=== PATIENT | male | born 1985 | race African-American/Black ===

== ENCOUNTER 2019-08-26 02:58 | Inpatient (IN) | payer OTHER, SELFPAY ==
[2019-08-26 03:24] LABS: #Basophils 0.1 thou/uL (0.0-0.2); #Eosinphils 0.2 thou/uL (0.0-0.7); #Lymphocytes 5.2 thou/uL (1.20-3.40); #Monocytes 1.3 thou/uL (0.11-0.59); #Neutrophils 6.8 thou/uL (1.40-6.50); %Basophils 0.8 % (0.0-1.0); %Eosinophils 1.6 % (0.0-10.0); %Lymphocytes 38.3 % (21.0-51.0); %Monocytes 9.4 % (0.0-10.0); Hemoglobin 14.3 g/dL (14.0-18.0); Mean Corpuscular Hemoglobin 30.5 pg (27.0-31.0); Mean Corpuscular Volume 92.3 fL (78.0-98.0); Mean Platelet Volume 7.5 fL (7.4-10.4); Platelet Count 215 thou/uL (130-400); RBC Distribution Width 13.4 % (11.5-14.5); Red Blood Cell (RBC) Count 4.68 mill/uL (4.70-6.10); White Blood Cell (WBC) Count 13.6 thou/uL (4.8-10.8)
[2019-08-26] MEDS ORDERED: Morphine 4 MG/ML VIAL ONE ×2 (03:40→06:28)
[2019-08-26] MEDS ORDERED: Ondansetron PF 4 MG/2 ML Vial ONE ×2 (03:40→06:28)
[2019-08-26] MEDS ORDERED: CEFAZOLIN 1 GM VIAL ONE ×2 (03:40→18:18)
[2019-08-26 03:41] LABS: ALT (SGPT) 22 U/L (8-55); AST (SGOT) 35 U/L (5-34); Acetaminophen Less than 6.0 mcg/mL (10.0-30.0); Albumin 3.9 g/dL (3.5-5.0); Alcohol Less than 10 mg/dL (Less than 10); Alkaline Phosphatase 109 U/L (40-110); Anion Gap 16 mmol/L (10-20); BUN (Urea Nitrogen) 10 mg/dL (8.9-20.6); Bilirubin, Total 0.5 mg/dL (0.2-1.2); Calc. Creatinine Clearance 0 mL/min (70-130); Calcium 9.6 mg/dL (7.8-10.44); Carbon Dioxide 23 mmol/L (22-29); Chloride 108 mmol/L (98-107); Estimated GFR-MDRD 78; Globulin 2.8 g/dL (2.4-3.5); Glucose 137 mg/dL (70-105); Potassium 3.9 mmol/L (3.5-5.1); Protein, Total 6.7 g/dL (6.0-8.3); Salicylate Less than 8.0 mg/dL (15.0-30.0); Sodium 143 mmol/L (136-145)
[2019-08-26] MEDS ORDERED: Ketamine 50 MG/ML (10ML VIAL) ONE (04:35)
[2019-08-26 05:18] LABS: CK (CPK) 494 U/L (30-200); Magnesium 1.7 mg/dL (1.6-2.6); Phosphorus 3.4 mg/dL (2.3-4.7)
[2019-08-26] MEDS ORDERED: hydrALAZINE 20 MG/ML VIAL SLOW IVP PRN (05:27)
[2019-08-26] MEDS ORDERED: Dextrose 50% Abboject 50 ML SYRINGE SLOW IVP PRN (05:27)
[2019-08-26] MEDS ORDERED: Ondansetron ODT 4 MG TAB PO PRN (05:27)
[2019-08-26] MEDS ORDERED: Dextrose 5% in Water 1,000 ML IV PRN (05:27)
[2019-08-26] MEDS ORDERED: Ondansetron PF 4 MG/2 ML Vial IVP PRN (05:27)
[2019-08-26] MEDS ORDERED: traMADol HCl 50 MG TAB PO PRN (05:36)
[2019-08-26] MEDS: Acetaminophen 1,000 MG in Premix Bag 1 BAG IVPB SCH ×2 (06:00→11:49)
[2019-08-26 06:30] LABS: Amphetamine Detected (NotDetected); Barbiturates Screen Not Detected (NotDetected); Benzodiazepine Screen Not Detected (NotDetected); Cocaine Metabolite Screen Detected (NotDetected); Medtox Reader # READER 4; Methadone Not Detected (NotDetected); Methamphetamine Not Detected (NotDetected); Opiate Screen Not Detected (NotDetected); Oxycodone Screen Not Detected (NotDetected); Phencyclidine (PCP) Detected (NotDetected); THC/Cannabinoid Screen Detected (NotDetected); Tricyclic Screen Not Detected (NotDetected)
[2019-08-26 06:31] LABS: Medtox Control Line Valid? VALID (VALID)
[2019-08-26] MEDS ORDERED: CEFAZOLIN 2 GM in Premix Bag 1 BAG IVPB SCH (07:00)
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
--- NOTE | 2019-08-26 08:12 | RAD ---
TWO VIEWS RIGHT HIP: HISTORY: Pain. Trauma. FINDINGS: There appears to be a comminuted fracture involving the lateral aspect of the acetabulum. IMPRESSION: Acetabular fracture. Refer to CT for further details. POS: [facility]
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
[2019-08-26] MEDS: Sodium Chloride 0.9% 1,000 ML IV SCH ×3 (08:47→22:24)
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
[2019-08-26] MEDS: Famotidine/PF 20 mg/2ml Vial SLOW IVP SCH ×2 (09:33→22:02)
[2019-08-26] MEDS ORDERED: ISOVUE-370 76%-LOCM 1 ML ONE (09:44)
[2019-08-26] MEDS: Ibuprofen 800 MG TAB PO SCH ×2 (09:46→16:25)
[2019-08-26] MEDS: Senokot S 8.6-50 MG TAB PO SCH ×2 (09:46→22:02)
[2019-08-26] MEDS: Polyethylene Glycol 3350 17 GM Packet PO SCH (09:46)
[2019-08-26] MEDS ORDERED: diphenhydrAMINE 50 MG/ML VIAL ONE (09:49)
[2019-08-26] MEDS ORDERED: Succinylcholine Chloride 20 MG/ML 10 ml SYRINGE FS ONE (09:49)
[2019-08-26] MEDS ORDERED: PHENYLEPHRINE-NS 100 MCG/ML 10 ML SYRINGE ONE (09:49)
[2019-08-26] MEDS ORDERED: Rocuronium Bromide 10 MG/ML (10ML VIAL) ONE (09:49)
[2019-08-26] MEDS ORDERED: PROPOFOL 200 MG/20 ML VIAL ONE (09:49)
[2019-08-26] MEDS ORDERED: Dexamethasone 20 MG/5 ML VIAL ONE (09:49)
[2019-08-26] MEDS ORDERED: Lidocaine 1% PF 5 ML VIAL ONE (09:49)
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
[2019-08-26 11:20] VITALS: BMI 38.7
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
[2019-08-26] MEDS: Morphine 2 MG/ML SYRINGE SLOW IVP PRN (11:47)
[2019-08-26] MEDS ORDERED: FLU VACC QS2019-20(6MOS UP)/PF 60 MCG/0.5 ML SYRINGE IM ONE (12:00)
[2019-08-26] MEDS ORDERED: Fentanyl 100 MCG/2 ML VIAL ONE ×2 (13:35→19:28)
[2019-08-26] MEDS ORDERED: Midazolam HCl 2 mg/2 ml Vial ONE (13:51)
[2019-08-26] MEDS ORDERED: Fentanyl 250 MCG/5 ML VIAL ONE (13:51)
[2019-08-26] MEDS ORDERED: HYDROmorphone 0.5 MG/0.5 ML SYRINGE ONE (15:35)
[2019-08-26] MEDS ORDERED: Albumin 5% 500 ML ONE (17:15)
[2019-08-26] MEDS ORDERED: Rocuronium Bromide 50 MG/5 ML VIAL ONE (18:18)
[2019-08-26] MEDS ORDERED: SUGAMMADEX SODIUM 500 MG/5 ML VIAL ONE (18:18)
[2019-08-26] MEDS ORDERED: SUGAMMADEX SODIUM 200 MG/2 ML VIAL ONE (18:19)
[2019-08-26] MEDS: Acetaminophen 500 MG TAB PO SCH (19:05)
--- NOTE | 2019-08-26 19:25 | RAD ---
EXAM: 2 views of the left forearm HISTORY: Radius and ulnar fractures COMPARISON: 08/26/2019 at 3:16 AM FINDINGS: 2 limited intraoperative fluoroscopic views were submitted for interpretation. The patient is status post plate and screw fixation of the fractures of the midportion of the radius and ulna. No perihardware lucency is seen. IMPRESSION: Status post ORIF of radius and ulnar fractures.
[2019-08-26] MEDS ORDERED: Promethazine HCl 25 MG/ML VIAL IM PRN (19:56)
[2019-08-26] MEDS ORDERED: Ondansetron HCl/PF 4 MG/2 ML Vial IVP PRN (19:56)
[2019-08-26] MEDS ORDERED: Meperidine HCl/PF 25 MG/ML VIAL SLOW IVP PRN (19:56)
[2019-08-26] MEDS ORDERED: HYDROmorphone 2 MG/ML VIAL SLOW IVP PRN (19:56)
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
[2019-08-26] MEDS: CEFAZOLIN 2 GM in Premix Bag 1 BAG IVPB SCH (22:11)
[2019-08-27] MEDS: Acetaminophen 500 MG TAB PO SCH ×4 (00:10→17:34)
[2019-08-27] MEDS: Ibuprofen 800 MG TAB PO SCH ×3 (00:12→15:15)
[2019-08-27] MEDS: traMADol HCl 50 MG TAB PO PRN (00:37)
[2019-08-27] MEDS: Cyclobenzaprine 10 MG TAB PO PRN (00:37)
[2019-08-27] MEDS: Sodium Chloride 0.9% 1,000 ML IV SCH (04:27)
[2019-08-27 04:54] LABS: #Lymphocytes 2.2 thou/uL (1.20-3.40); #Monocytes 1.4 thou/uL (0.11-0.59); #Neutrophils 13.7 thou/uL (1.40-6.50); %Basophils 0.2 % (0.0-1.0); %Eosinophils 0.1 % (0.0-10.0); %Lymphocytes 12.5 % (21.0-51.0); %Monocytes 7.9 % (0.0-10.0); %Neutrophils 79.3 % (42.0-75.0); Hemoglobin 10.8 g/dL (14.0-18.0); Mean Corpuscular HGB CONC 32.3 g/dL (32.0-36.0); Mean Corpuscular Hemoglobin 30.3 pg (27.0-31.0); Mean Corpuscular Volume 93.9 fL (78.0-98.0); Mean Platelet Volume 7.4 fL (7.4-10.4); Platelet Count 167 thou/uL (130-400); RBC Distribution Width 13.3 % (11.5-14.5); Red Blood Cell (RBC) Count 3.55 mill/uL (4.70-6.10); White Blood Cell (WBC) Count 17.3 thou/uL (4.8-10.8)
[2019-08-27 05:13] LABS: Anion Gap 11 mmol/L (10-20); BUN (Urea Nitrogen) 10 mg/dL (8.9-20.6); Calc. Creatinine Clearance 219 mL/min (70-130); Calcium 8.2 mg/dL (7.8-10.44); Carbon Dioxide 24 mmol/L (22-29); Chloride 106 mmol/L (98-107); Estimated GFR-MDRD Greater than 90; Glucose 109 mg/dL (70-105); Magnesium 1.5 mg/dL (1.6-2.6); Phosphorus 3.3 mg/dL (2.3-4.7); Potassium 4.2 mmol/L (3.5-5.1); Sodium 137 mmol/L (136-145)
[2019-08-27] MEDS: CEFAZOLIN 2 GM in Premix Bag 1 BAG IVPB SCH (05:44)
[2019-08-27] MEDS ORDERED: traMADol HCl 50 MG TAB PO PRN (07:21)
[2019-08-27] MEDS ORDERED: Magnesium 2 GM/50 ML 2 GM in Premix Bag 1 BAG IVPB SCH (07:30)
--- NOTE | 2019-08-27 07:57 | RAD ---
Exam: XR Hip Rt 2-3 View HISTORY: Right hip ORIF COMPARISON: Views right hip on 08/26/2019 at 0435 hours. FINDINGS: A malleable plate and screws transfix the right acetabular fracture. The distal portion of the distal screw overlies the more lateral aspect of the obturator foramen. A metallic density overlies the more lateral subcutaneous soft tissues. This could be artifactual as this is in a similar position on all provided fluoroscopic images. Subcutaneous emphysema is seen about the lateral aspect of the right hip. Fluoroscopy: Total time is 27.3 seconds with total dose of 12.05 mGy. IMPRESSION: 1. Postsurgical changes right acetabulum. 2. Metallic density overlying the lateral gluteal subcutaneous soft tissues which could potentially b e artifactual as this is seen in a similar position on all fluoroscopic images.
[2019-08-27] MEDS: Polyethylene Glycol 3350 17 GM Packet PO SCH (08:51)
[2019-08-27] MEDS: Senokot S 8.6-50 MG TAB PO SCH ×2 (08:51→20:44)
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
[2019-08-27] MEDS: Morphine 2 MG/ML SYRINGE SLOW IVP PRN (12:36)
[2019-08-27] MEDS ORDERED: Sodium Chloride 0.9% 1,000 ML IV SCH (16:45)
[2019-08-27] MEDS: Enoxaparin Sodium 30 MG/0.3 ML SYRINGE SC SCH (20:44)
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
[2019-08-28] MEDS: Acetaminophen 500 MG TAB PO SCH ×5 (05:28→23:46)
[2019-08-28] MEDS: Cyclobenzaprine 10 MG TAB PO PRN ×2 (05:28→14:41)
[2019-08-28 05:29] LABS: #Eosinphils 0.2 thou/uL (0.0-0.7); #Lymphocytes 2.2 thou/uL (1.20-3.40); #Neutrophils 12.8 thou/uL (1.40-6.50); %Basophils 0.2 % (0.0-1.0); %Eosinophils 1.3 % (0.0-10.0); %Lymphocytes 13.5 % (21.0-51.0); %Neutrophils 79.1 % (42.0-75.0); Hemoglobin 9.7 g/dL (14.0-18.0); Mean Corpuscular HGB CONC 31.9 g/dL (32.0-36.0); Mean Corpuscular Hemoglobin 30.4 pg (27.0-31.0); Mean Corpuscular Volume 95.2 fL (78.0-98.0); Mean Platelet Volume 7.8 fL (7.4-10.4); Platelet Count 153 thou/uL (130-400); White Blood Cell (WBC) Count 16.1 thou/uL (4.8-10.8)
[2019-08-28 05:59] LABS: Anion Gap 10 mmol/L (10-20); BUN (Urea Nitrogen) 8 mg/dL (8.9-20.6); Calc. Creatinine Clearance 266 mL/min (70-130); Calcium 8.2 mg/dL (7.8-10.44); Carbon Dioxide 25 mmol/L (22-29); Chloride 105 mmol/L (98-107); Estimated GFR-MDRD Greater than 90; Glucose 95 mg/dL (70-105); Magnesium 1.7 mg/dL (1.6-2.6); Phosphorus 1.7 mg/dL (2.3-4.7); Potassium 3.8 mmol/L (3.5-5.1); Sodium 136 mmol/L (136-145)
[2019-08-28] MEDS: Ibuprofen 800 MG TAB PO SCH ×4 (06:34→23:46)
[2019-08-28] MEDS: PHOS-NAK 1 PKT PACK PO SCH ×3 (08:05→23:46)
[2019-08-28] MEDS: Magnesium Oxide 400 MG TAB PO SCH ×2 (08:05→20:34)
[2019-08-28] MEDS: Enoxaparin Sodium 30 MG/0.3 ML SYRINGE SC SCH ×2 (08:05→20:35)
[2019-08-28] MEDS: Senokot S 8.6-50 MG TAB PO SCH ×2 (08:05→20:34)
[2019-08-28] MEDS: Polyethylene Glycol 3350 17 GM Packet PO SCH (08:06)
[2019-08-28] MEDS: traMADol HCl 50 MG TAB PO PRN ×3 (08:06→23:47)
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
[2019-08-29 04:20] LABS: #Eosinphils 0.4 thou/uL (0.0-0.7); #Lymphocytes 1.9 thou/uL (1.20-3.40); #Neutrophils 10.9 thou/uL (1.40-6.50); %Basophils 0.2 % (0.0-1.0); %Eosinophils 2.6 % (0.0-10.0); %Lymphocytes 13.5 % (21.0-51.0); %Monocytes 6.8 % (0.0-10.0); Hemoglobin 9.5 g/dL (14.0-18.0); Mean Corpuscular HGB CONC 32.8 g/dL (32.0-36.0); Mean Corpuscular Hemoglobin 30.7 pg (27.0-31.0); Mean Corpuscular Volume 93.5 fL (78.0-98.0); Mean Platelet Volume 7.9 fL (7.4-10.4); Platelet Count 156 thou/uL (130-400); RBC Distribution Width 12.9 % (11.5-14.5); Red Blood Cell (RBC) Count 3.09 mill/uL (4.70-6.10); White Blood Cell (WBC) Count 14.2 thou/uL (4.8-10.8)
[2019-08-29] MEDS: Ibuprofen 800 MG TAB PO SCH ×3 (06:16→23:39)
[2019-08-29] MEDS: Acetaminophen 500 MG TAB PO SCH ×4 (06:16→23:38)
[2019-08-29] MEDS: PHOS-NAK 1 PKT PACK PO SCH ×3 (06:17→23:38)
[2019-08-29] MEDS: Senokot S 8.6-50 MG TAB PO SCH ×2 (08:15→20:40)
[2019-08-29] MEDS: Magnesium Oxide 400 MG TAB PO SCH ×2 (08:15→20:40)
[2019-08-29] MEDS: Enoxaparin Sodium 30 MG/0.3 ML SYRINGE SC SCH ×2 (08:15→20:40)
[2019-08-29] MEDS: Polyethylene Glycol 3350 17 GM Packet PO SCH (08:15)
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
[2019-08-29] MEDS: traMADol HCl 50 MG TAB PO PRN (20:30)
[2019-08-29] MEDS ORDERED: traMADol HCl 50 MG TAB PO PRN ×2 (20:34→20:35)
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
[2019-08-30] MEDS: Magnesium Oxide 400 MG TAB PO SCH ×2 (07:51→20:04)
[2019-08-30] MEDS: traMADol HCl 50 MG TAB PO PRN ×3 (07:52→23:23)
[2019-08-30] MEDS: Acetaminophen 500 MG TAB PO SCH ×4 (07:53→20:04)
[2019-08-30] MEDS: Senokot S 8.6-50 MG TAB PO SCH ×2 (07:54→20:04)
[2019-08-30] MEDS: Enoxaparin Sodium 30 MG/0.3 ML SYRINGE SC SCH ×2 (07:57→20:03)
[2019-08-30] MEDS: Ibuprofen 800 MG TAB PO SCH ×3 (07:58→23:19)
[2019-08-30] MEDS: PHOS-NAK 1 PKT PACK PO SCH ×3 (07:58→23:19)
[2019-08-30] MEDS: Polyethylene Glycol 3350 17 GM Packet PO SCH (11:53)
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
[2019-08-31] MEDS: Acetaminophen 500 MG TAB PO SCH ×2 (02:00→08:38)
[2019-08-31] MEDS: Ibuprofen 800 MG TAB PO SCH ×3 (06:21→23:04)
[2019-08-31] MEDS: PHOS-NAK 1 PKT PACK PO SCH ×3 (06:21→23:05)
[2019-08-31] MEDS: Polyethylene Glycol 3350 17 GM Packet PO SCH (08:30)
[2019-08-31] MEDS: Enoxaparin Sodium 30 MG/0.3 ML SYRINGE SC SCH (08:32)
[2019-08-31] MEDS: Magnesium Oxide 400 MG TAB PO SCH ×2 (08:35→23:07)
[2019-08-31] MEDS: Senokot S 8.6-50 MG TAB PO SCH ×2 (08:38→23:07)
[2019-08-31] MEDS: traMADol HCl 50 MG TAB PO PRN (08:49)
[2019-08-31] MEDS: Cyclobenzaprine 10 MG TAB PO PRN (09:39)
[2019-08-31] MEDS ORDERED: HYDROcodone/Acetaminophen 5/325 mg Tablet PO PRN (09:46)
[2019-08-31] MEDS ORDERED: Acetaminophen 500 MG TAB PO PRN (09:46)
[2019-08-31] MEDS ORDERED: Glycopyrrolate 0.2 MG/ML 5 ML SYRINGE ONE (10:16)
[2019-08-31] MEDS ORDERED: Lidocaine 1% PF 5 ML VIAL ONE (10:16)
[2019-08-31] MEDS ORDERED: Dexamethasone 20 MG/5 ML VIAL ONE (10:16)
[2019-08-31] MEDS ORDERED: Rocuronium Bromide 10 MG/ML (10ML VIAL) ONE (10:16)
[2019-08-31] MEDS ORDERED: ePHEDrine/0.9% NaCl/PF SYRINGE 50 mg/10 ml ONE (10:16)
[2019-08-31] MEDS ORDERED: PHENYLEPHRINE-NS 100 MCG/ML 10 ML SYRINGE ONE (10:16)
[2019-08-31] MEDS ORDERED: PROPOFOL 200 MG/20 ML VIAL ONE (10:16)
[2019-08-31] MEDS ORDERED: Ondansetron PF 4 MG/2 ML Vial ONE (10:16)
[2019-08-31] MEDS ORDERED: Fentanyl 100 MCG/2 ML VIAL SLOW IVP PRN (12:09)
[2019-08-31] MEDS ORDERED: Diazepam 10 MG/2 ML SYRINGE IVP PRN (12:11)
[2019-08-31] MEDS ORDERED: CEFAZOLIN 2 GM in Premix Bag 1 BAG IVPB SCH (12:15)
--- NOTE | 2019-08-31 12:27 | RAD ---
3 VIEWS PELVIS: Date: 08/31/19 COMPARISON: None. HISTORY: Right acetabular open reduction and internal fixation. Patient heard a pop. FINDINGS: 3 views of the right hip show the patient to be status post open reduction and internal fixation of t he right hip. There is dislocation of the right hip joint. There appears to be a small fracture fragm ent along the superior aspect of the hip joint where the dislocation is seen. This may be a portion o f the acetabulum. Overlying skin leyda are from recent surgery. IMPRESSION: Dislocation of the right hip with likely fracture fragment from the hip joint being displaced superio rly. POS: TPC
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
[2019-08-31] MEDS ORDERED: Fentanyl 100 MCG/2 ML VIAL ONE ×4 (16:10→21:50)
[2019-08-31] MEDS: Gabapentin 300 MG CAP PO SCH ×2 (16:42→23:04)
[2019-08-31] MEDS: Lactated Ringer's 1,000 ML IV SCH ×2 (16:42→23:11)
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
[2019-08-31] MEDS ORDERED: HYDROmorphone 2 MG/ML VIAL SLOW IVP PRN (21:44)
[2019-08-31] MEDS ORDERED: Ondansetron HCl/PF 4 MG/2 ML Vial IVP PRN (21:44)
[2019-08-31] MEDS ORDERED: Promethazine HCl 25 MG/ML VIAL IM PRN ×2 (21:44→21:54)
[2019-08-31] MEDS ORDERED: PACU-Morphine 4MG/ML VIAL SLOW IVP PRN (21:44)
[2019-08-31] MEDS ORDERED: Promethazine HCl 25 MG/ML VIAL SLOW IVP PRN (21:44)
[2019-08-31] MEDS ORDERED: fentaNYL Citrate/PF 2,000 MCG in Sodium Chloride 0.9% 60 ML IV PRN (21:54)
[2019-08-31] MEDS ORDERED: diphenhydrAMINE 50 MG/ML VIAL IVP PRN (21:54)
[2019-08-31] MEDS ORDERED: diphenhydrAMINE 50 MG/ML VIAL IM PRN (21:54)
[2019-08-31] MEDS ORDERED: Zolpidem Tartrate 5 MG TAB PO PRN (21:54)
[2019-08-31] MEDS ORDERED: diphenhydrAMINE 25 MG CAP PO PRN (21:54)
[2019-08-31] MEDS ORDERED: Naloxone HCl 0.4 mg/ml Vial IV PRN (21:54)
[2019-08-31] MEDS ORDERED: Ondansetron PF 4 MG/2 ML Vial IVP PRN (21:54)
[2019-08-31] MEDS ORDERED: Communication Order-Pharmacy FS SCH (22:00)
[2019-08-31] MEDS: cefTRIAXone\\ROCEPHIN 2 GM in Sodium Chloride 0.9% 100 ML IVPB SCH (23:05)
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
[2019-09-01] MEDS: CEFAZOLIN 2 GM in Premix Bag 1 BAG IVPB SCH ×3 (02:59→18:36)
[2019-09-01 05:17] LABS: #Eosinphils 0.1 thou/uL (0.0-0.7); #Lymphocytes 0.9 thou/uL (1.20-3.40); #Monocytes 0.8 thou/uL (0.11-0.59); #Neutrophils 13.3 thou/uL (1.40-6.50); %Eosinophils 0.6 % (0.0-10.0); %Lymphocytes 6.2 % (21.0-51.0); %Monocytes 5.2 % (0.0-10.0); %Neutrophils 87.9 % (42.0-75.0); Hemoglobin 9.5 g/dL (14.0-18.0); Mean Corpuscular HGB CONC 32.8 g/dL (32.0-36.0); Mean Corpuscular Hemoglobin 30.3 pg (27.0-31.0); Mean Corpuscular Volume 92.3 fL (78.0-98.0); Mean Platelet Volume 6.9 fL (7.4-10.4); Platelet Count 317 thou/uL (130-400); RBC Distribution Width 12.9 % (11.5-14.5); Red Blood Cell (RBC) Count 3.13 mill/uL (4.70-6.10); White Blood Cell (WBC) Count 15.1 thou/uL (4.8-10.8)
[2019-09-01 05:25] LABS: Anion Gap 13 mmol/L (10-20); BUN (Urea Nitrogen) 10 mg/dL (8.9-20.6); Calc. Creatinine Clearance 246 mL/min (70-130); Carbon Dioxide 24 mmol/L (22-29); Chloride 102 mmol/L (98-107); Estimated GFR-MDRD Greater than 90; Glucose 123 mg/dL (70-105); Magnesium 2.1 mg/dL (1.6-2.6); Phosphorus 3.4 mg/dL (2.3-4.7); Potassium 5.4 mmol/L (3.5-5.1); Sodium 134 mmol/L (136-145)
[2019-09-01] MEDS: Ibuprofen 800 MG TAB PO SCH ×3 (06:36→22:49)
[2019-09-01] MEDS: PHOS-NAK 1 PKT PACK PO SCH (06:41)
[2019-09-01] MEDS ORDERED: Sodium Chloride 0.9% 1,000 ML IV SCH (08:15)
[2019-09-01] MEDS: Enoxaparin Sodium 30 MG/0.3 ML SYRINGE SC SCH ×2 (08:50→20:51)
[2019-09-01] MEDS: Gabapentin 300 MG CAP PO SCH ×3 (08:50→20:50)
[2019-09-01] MEDS: Polyethylene Glycol 3350 17 GM Packet PO SCH (08:50)
[2019-09-01] MEDS: Senokot S 8.6-50 MG TAB PO SCH ×2 (08:50→20:51)
[2019-09-01] MEDS ORDERED: Acetaminophen 500 MG TAB PO SCH (09:00)
[2019-09-01] MEDS: Acetaminophen 325 MG TAB PO SCH ×3 (09:42→20:50)
[2019-09-01 15:20] LABS: Anion Gap 14 mmol/L (10-20); BUN (Urea Nitrogen) 13 mg/dL (8.9-20.6); Calc. Creatinine Clearance 246 mL/min (70-130); Calcium 8.7 mg/dL (7.8-10.44); Carbon Dioxide 21 mmol/L (22-29); Chloride 103 mmol/L (98-107); Estimated GFR-MDRD Greater than 90; Glucose 129 mg/dL (70-105); Potassium 4.8 mmol/L (3.5-5.1); Sodium 133 mmol/L (136-145)
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
[2019-09-01] MEDS: cefTRIAXone\\ROCEPHIN 2 GM in Sodium Chloride 0.9% 100 ML IVPB SCH (20:52)
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
[2019-09-02] MEDS: CEFAZOLIN 2 GM in Premix Bag 1 BAG IVPB SCH ×2 (02:11→10:04)
[2019-09-02] MEDS: Ibuprofen 800 MG TAB PO SCH (06:03)
[2019-09-02] MEDS ORDERED: traMADol HCl 50 MG TAB PO PRN ×2 (07:08)
[2019-09-02] MEDS ORDERED: Gabapentin 300 MG CAP PO SCH (09:00)
[2019-09-02] MEDS ORDERED: Acetaminophen 500 MG TAB PO SCH (09:00)
[2019-09-02] MEDS: Enoxaparin Sodium 30 MG/0.3 ML SYRINGE SC SCH (10:04)
[2019-09-02] MEDS: Senokot S 8.6-50 MG TAB PO SCH (10:04)
[2019-09-02] MEDS: Polyethylene Glycol 3350 17 GM Packet PO SCH (10:04)
[2019-09-02] MEDS ORDERED: Ibuprofen 600 MG TAB PO SCH (12:00)
[2019-09-02 12:20] VITALS: BP 110/68; TEMP 98.4
[2019-09-02] MEDS: Cyclobenzaprine 10 MG TAB PO PRN (12:40)
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
== END 2019-09-02 15:10 | DRG 510 ==
LOC: ERS 02:58 → SURG A 05:27
PROVIDERS: ADMIT Surgery; ATTEND Surgery
PROC: 0PSJ04Z Reposition Left Radius with Internal Fixation Device, Open Approach (ICD-10-PCS; principal; 2019-08-28)
PROC: 0QS404Z Reposition Right Acetabulum with Internal Fixation Device, Open Approach (ICD-10-PCS; 2019-08-28)
PROC: 0PSL04Z Reposition Left Ulna with Internal Fixation Device, Open Approach (ICD-10-PCS; 2019-08-28)
PROC: 0JQH3ZZ Repair Left Lower Arm Subcutaneous Tissue and Fascia, Percutaneous Approach (ICD-10-PCS; 2019-08-28)
PROC: 0QS4XZZ Reposition Right Acetabulum, External Approach (ICD-10-PCS; 2019-08-28)
PROC: 0QS404Z Reposition Right Acetabulum with Internal Fixation Device, Open Approach (ICD-10-PCS; 2019-08-31)
DX: S52.392A Other fracture of shaft of radius, left arm, initial encounter for closed fracture (principal); S32.491A Other specified fracture of right acetabulum, initial encounter for closed fracture; S32.018A Other fracture of first lumbar vertebra, initial encounter for closed fracture; S32.038A Other fracture of third lumbar vertebra, initial encounter for closed fracture; S32.028A Other fracture of second lumbar vertebra, initial encounter for closed fracture; S32.048A Other fracture of fourth lumbar vertebra, initial encounter for closed fracture; S52.292A Other fracture of shaft of left ulna, initial encounter for closed fracture; J45.909 Unspecified asthma, uncomplicated; S06.0X0A Concussion without loss of consciousness, initial encounter; F19.10 Other psychoactive substance abuse, uncomplicated; S81.011A Laceration without foreign body, right knee, initial encounter; E83.42 Hypomagnesemia; E83.39 Other disorders of phosphorus metabolism; V47.5XXA Car driver injured in collision with fixed or stationary object in traffic accident, initial encounter; Y93.89 Activity, other specified; Y92.488 Other paved roadways as the place of occurrence of the external cause; F17.210 Nicotine dependence, cigarettes, uncomplicated; R40.2132 Coma scale, eyes open, to sound, at arrival to emergency department; R40.2242 Coma scale, best verbal response, confused conversation, at arrival to emergency department; R40.2362 Coma scale, best motor response, obeys commands, at arrival to emergency department
CPT/HCPCS: 27250; 29125; 36415; 70450; 71045; 71260; 72125; 72190; 74177; 76000; 80048; 80053; 80306; 80307; 82550; 83735; 84100; 85025; 86850; 86900; 86901; 90471; 90686; 90732; 93005; 96365; 96375; 96376; 99152; C1713; G0008; G0009; G0390; J0131; J0690; J0696; J1100; J1170; J1200; J1650; J2001; J2250; J2270; J2405; J2704; J3010; J3475; J3490; P9045; Q9966; S0028

== ENCOUNTER 2019-09-10 12:28 | Inpatient (IN) | payer OTHER ==
[~2019-09-10 12:28] MED LIST: Dexamethasone 20 MG/5 ML VIAL ONE; Glycopyrrolate 0.2 MG/ML 5 ML SYRINGE ONE; Lidocaine 1% PF 5 ML VIAL ONE; Ondansetron PF 4 MG/2 ML Vial ONE; PHENYLEPHRINE-NS 100 MCG/ML 10 ML SYRINGE ONE; PROPOFOL 200 MG/20 ML VIAL ONE; Succinylcholine Chloride 20 MG/ML 10 ml SYRINGE FS ONE
[2019-09-10] MEDS ORDERED: Morphine 2 MG/ML SYRINGE SLOW IVP PRN (13:17)
[2019-09-10] MEDS ORDERED: FLU VACC QS2019-20(6MOS UP)/PF 60 MCG/0.5 ML SYRINGE IM ONE (14:00)
[2019-09-10 14:08] VITALS: BMI 37.3
[2019-09-10 14:14] LABS: #Basophils 0.1 thou/uL (0.0-0.2); #Eosinphils 0.2 thou/uL (0.0-0.7); #Lymphocytes 2.6 thou/uL (1.20-3.40); #Monocytes 1.1 thou/uL (0.11-0.59); #Neutrophils 6.9 thou/uL (1.40-6.50); %Basophils 0.8 % (0.0-1.0); %Eosinophils 2.3 % (0.0-10.0); %Lymphocytes 24.2 % (21.0-51.0); %Monocytes 10.1 % (0.0-10.0); %Neutrophils 62.7 % (42.0-75.0); Hemoglobin 9.6 g/dL (14.0-18.0); Mean Corpuscular HGB CONC 32.3 g/dL (32.0-36.0); Mean Corpuscular Hemoglobin 29.5 pg (27.0-31.0); Mean Corpuscular Volume 91.3 fL (78.0-98.0); Mean Platelet Volume 5.8 fL (7.4-10.4); Platelet Count 662 thou/uL (130-400); RBC Distribution Width 13.4 % (11.5-14.5); Red Blood Cell (RBC) Count 3.26 mill/uL (4.70-6.10); White Blood Cell (WBC) Count 10.9 thou/uL (4.8-10.8)
[2019-09-10] MEDS ORDERED: Fentanyl 100 MCG/2 ML VIAL ONE ×2 (15:30→15:53)
[2019-09-10] MEDS ORDERED: Meperidine HCl/PF 25 MG/ML VIAL SLOW IVP PRN (16:53)
[2019-09-10] MEDS ORDERED: Promethazine HCl 25 MG/ML VIAL SLOW IVP PRN (16:53)
[2019-09-10] MEDS ORDERED: HYDROmorphone 2 MG/ML VIAL SLOW IVP PRN (16:53)
[2019-09-10] MEDS ORDERED: Ondansetron HCl/PF 4 MG/2 ML Vial IVP PRN (16:53)
[2019-09-10] MEDS ORDERED: diphenhydrAMINE 25 MG CAP PO PRN (16:54)
[2019-09-10] MEDS ORDERED: Ondansetron PF 4 MG/2 ML Vial IVP PRN (16:54)
[2019-09-10] MEDS ORDERED: traMADol HCl 50 MG TAB PO PRN ×3 (16:54)
[2019-09-10] MEDS ORDERED: Acetaminophen/Codeine 30-300mg Tablet PO PRN (17:48)
[2019-09-10] MEDS ORDERED: Ketorolac Tromethamine 30 MG/ML VIAL IVP PRN (17:48)
[2019-09-10] MEDS: Sodium Chloride 0.9% 1,000 ML IV SCH (19:17)
[2019-09-10] MEDS: Senokot S 8.6-50 MG TAB PO SCH (20:31)
[2019-09-10] MEDS: CEFAZOLIN 2 GM in Premix Bag 1 BAG IVPB SCH (22:27)
[2019-09-10] MEDS: Acetaminophen/Codeine 30-300mg Tablet PO PRN (23:19)
[2019-09-11] MEDS: Sodium Chloride 0.9% 1,000 ML IV SCH ×3 (00:40→20:33)
[2019-09-11 05:33] LABS: #Lymphocytes 1.5 thou/uL (1.20-3.40); #Monocytes 0.9 thou/uL (0.11-0.59); #Neutrophils 12.1 thou/uL (1.40-6.50); %Basophils 0.3 % (0.0-1.0); %Eosinophils 0.1 % (0.0-10.0); %Lymphocytes 10.1 % (21.0-51.0); %Monocytes 5.9 % (0.0-10.0); %Neutrophils 83.6 % (42.0-75.0); Hemoglobin 8.8 g/dL (14.0-18.0); Mean Corpuscular HGB CONC 32.7 g/dL (32.0-36.0); Mean Corpuscular Hemoglobin 29.6 pg (27.0-31.0); Mean Corpuscular Volume 90.5 fL (78.0-98.0); Mean Platelet Volume 5.9 fL (7.4-10.4); Platelet Count 594 thou/uL (130-400); RBC Distribution Width 13.3 % (11.5-14.5); Red Blood Cell (RBC) Count 2.97 mill/uL (4.70-6.10); White Blood Cell (WBC) Count 14.5 thou/uL (4.8-10.8)
[2019-09-11] MEDS: CEFAZOLIN 2 GM in Premix Bag 1 BAG IVPB SCH ×2 (06:02→14:26)
[2019-09-11] MEDS: Senokot S 8.6-50 MG TAB PO SCH ×2 (09:12→20:33)
[2019-09-11] MEDS: Polyethylene Glycol 3350 17 GM Packet PO SCH (09:12)
[2019-09-11] MEDS: Acetaminophen/Codeine 30-300mg Tablet PO PRN ×2 (09:15→22:33)
[2019-09-12] MEDS: Sodium Chloride 0.9% 1,000 ML IV SCH ×2 (05:52→16:14)
[2019-09-12 06:19] LABS: #Basophils 0.1 thou/uL (0.0-0.2); #Eosinphils 0.2 thou/uL (0.0-0.7); #Lymphocytes 3.6 thou/uL (1.20-3.40); #Monocytes 0.8 thou/uL (0.11-0.59); #Neutrophils 5.3 thou/uL (1.40-6.50); %Basophils 0.9 % (0.0-1.0); Mean Corpuscular HGB CONC 31.8 g/dL (32.0-36.0); Mean Corpuscular Hemoglobin 29.3 pg (27.0-31.0); Mean Corpuscular Volume 91.9 fL (78.0-98.0); Platelet Count 581 thou/uL (130-400); RBC Distribution Width 13.4 % (11.5-14.5); Red Blood Cell (RBC) Count 3.06 mill/uL (4.70-6.10)
[2019-09-12] MEDS: Acetaminophen/Codeine 30-300mg Tablet PO PRN ×2 (09:05→20:16)
[2019-09-12] MEDS: Polyethylene Glycol 3350 17 GM Packet PO SCH (09:10)
[2019-09-12] MEDS: Senokot S 8.6-50 MG TAB PO SCH ×2 (09:10→20:16)
[2019-09-12] MEDS: Cyclobenzaprine 10 MG TAB PO PRN (20:23)
[2019-09-13] MEDS: Sodium Chloride 0.9% 1,000 ML IV SCH ×3 (00:03→21:29)
--- NOTE | 2019-09-13 09:24 | PRG ---
DATE OF SERVICE: 09/13/2019 SUBJECTIVE: Gary has been treated for his dehiscence of the left arm, and at this point, he is doing relatively well, he is up moving around and in good spirits. OBJECTIVE: EXTREMITIES: There is no strike through. Wound VAC is in place. He is neurovascularly intact in the left upper extremity. He is not complaining of any discomfort. IMPRESSION AND PLAN: Status post open reduction and internal fixation x2 for left posterior acetabular wall fracture, and hip dislocation with a both-bone forearm, left, status post open reduction and internal fixation, stitches out with a little bit of dehiscence at antecubital fossa laceration, now with wound VAC. Continue current care. He will either transfer back to rehab for a few days or discharge directly home. Job ID: [id number]
[2019-09-13] MEDS: Acetaminophen/Codeine 30-300mg Tablet PO PRN ×3 (09:28→21:11)
[2019-09-13] MEDS: Senokot S 8.6-50 MG TAB PO SCH ×2 (10:27→21:23)
[2019-09-13] MEDS: Polyethylene Glycol 3350 17 GM Packet PO SCH (10:27)
[2019-09-13] MEDS: Cyclobenzaprine 10 MG TAB PO PRN (21:15)
[2019-09-14] MEDS: Acetaminophen/Codeine 30-300mg Tablet PO PRN ×4 (06:39→21:26)
[2019-09-14] MEDS: Sodium Chloride 0.9% 1,000 ML IV SCH ×2 (06:42→16:01)
[2019-09-14] MEDS: Senokot S 8.6-50 MG TAB PO SCH ×2 (08:59→21:29)
[2019-09-14] MEDS: Polyethylene Glycol 3350 17 GM Packet PO SCH (08:59)
[2019-09-14] MEDS: Cyclobenzaprine 10 MG TAB PO PRN (12:52)
[2019-09-15] MEDS: Sodium Chloride 0.9% 1,000 ML IV SCH (04:39)
[2019-09-15] MEDS: Cyclobenzaprine 10 MG TAB PO PRN (05:50)
[2019-09-15] MEDS: Acetaminophen/Codeine 30-300mg Tablet PO PRN (06:00)
[2019-09-15] MEDS: Polyethylene Glycol 3350 17 GM Packet PO SCH (08:49)
[2019-09-15] MEDS: Senokot S 8.6-50 MG TAB PO SCH (08:49)
[2019-09-15] MEDS ORDERED: Aspirin 81 mg Enteric Coated Tablet PO SCH (09:00)
[2019-09-15 11:50] VITALS: BP 102/56; TEMP 97.9
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
--- NOTE | 2019-09-17 08:42 | PQF ---
GARY ALEMAN ANTHONY, MD [id number] [facility] 3317 [id number] CLINICAL DOCUMENTATION CLARIFICATION FORM: POST DISCHARGE Addendum to original discharge summary date: ____ Late entry note date: __ DATE:09/17/2019 ATTN: FELISHA ALVARADO MD Please exercise your independent, professional judgment in responding to the clarification form. Clinical indicators are provided on the bottom of this form for your review Please check appropriate box(s): Kindly clarify the Debridement type [ ] Excisional Debridement [ ] Non-excisional Debridement [ ] Other procedure diagnosis [ ] Unable to determine For continuity of documentation, please document condition throughout progress notes and discharge summary. Thank You. CLINICAL INDICATORS - SIGNS / SYMPTOMS / LABS Stitches out with a little bit of dehiscence at antecubital fossa laceration- Documented in PN on 09/13 by Deny Amaral Gary has been treated for his dehiscence-Documented in PN on 09/13 by Deny Amaral Sharp debridement of left antecubital fossa wound (skin, subcutaneous)- Documented in Scanned PN on 09/13 RISK FACTORS Status post ORIF left posterior acetabular wall fracture, both bone forearm left Status post ORIF-Documented in PN on 09/13 by Deny Amaral TREATMENTS: Wound VAC is in place-Documented in PN on 09/13 by Deny Amaral (This form is maintained as a part of the permanent medical record) 2014 [employer] All Rights Reserved [email or web address] [not provided] MTDD
== END 2019-09-15 13:25 | disposition home or self-care (01) | DRG 903 ==
LOC: SJJU 12:28 → EEVIPCON 12:28
PROVIDERS: ADMIT Orthopaedic Surgery; ATTEND Orthopaedic Surgery
PROC: 0JBH0ZZ Excision of Left Lower Arm Subcutaneous Tissue and Fascia, Open Approach (ICD-10-PCS; principal; 2019-09-10)
PROC: 2W19X6Z Compression of Left Upper Extremity using Pressure Dressing (ICD-10-PCS; 2019-09-11)
DX: T81.31XA Disruption of external operation (surgical) wound, not elsewhere classified, initial encounter (principal); Y83.8 Other surgical procedures as the cause of abnormal reaction of the patient, or of later complication, without mention of misadventure at the time of the procedure
CPT/HCPCS: 36415; 85025; J0690; J1100; J2001; J2270; J2405; J2704; J3010

== ENCOUNTER 2019-10-11 18:12 | Inpatient (IN) | payer OTHER ==
[~2019-10-11 18:12] MED LIST changes: -Dexamethasone 20 MG/5 ML VIAL ONE; -Glycopyrrolate 0.2 MG/ML 5 ML SYRINGE ONE; +Iopamidol-370 76% 500 ML 1 ML ONE; -Lidocaine 1% PF 5 ML VIAL ONE; -Ondansetron PF 4 MG/2 ML Vial ONE; -PHENYLEPHRINE-NS 100 MCG/ML 10 ML SYRINGE ONE; -PROPOFOL 200 MG/20 ML VIAL ONE; -Succinylcholine Chloride 20 MG/ML 10 ml SYRINGE FS ONE
[2019-10-11] MEDS ORDERED: Acetaminophen 500 MG TAB ONE (18:54)
[2019-10-11] MEDS ORDERED: Ketorolac Tromethamine 30 MG/ML VIAL ONE (18:54)
[2019-10-11 19:08] LABS: #Basophils 0.1 thou/uL (0.0-0.2); #Eosinphils 0.1 thou/uL (0.0-0.7); #Lymphocytes 1.9 thou/uL (1.20-3.40); #Neutrophils 7.3 thou/uL (1.40-6.50); %Basophils 0.6 % (0.0-1.0); %Eosinophils 1.2 % (0.0-10.0); %Lymphocytes 18.2 % (21.0-51.0); %Monocytes 9.3 % (0.0-10.0); %Neutrophils 70.8 % (42.0-75.0); Hemoglobin 11.3 g/dL (14.0-18.0); Mean Corpuscular HGB CONC 32.4 g/dL (32.0-36.0); Mean Corpuscular Volume 86.3 fL (78.0-98.0); Mean Platelet Volume 6.6 fL (7.4-10.4); Platelet Count 305 thou/uL (130-400); RBC Distribution Width 13.8 % (11.5-14.5); Red Blood Cell (RBC) Count 4.03 mill/uL (4.70-6.10); White Blood Cell (WBC) Count 10.3 thou/uL (4.8-10.8)
--- NOTE | 2019-10-11 19:09 | RAD ---
PORTABLE CHEST: History: Fever. Comparison: 08-26-19 FINDINGS: Heart size and mediastinum within normal limits. The lungs are clear of infiltrates. No significant b ronen findings. IMPRESSION: No active intrathoracic disease. POS: [facility]
[2019-10-11 19:23] LABS: ALT (SGPT) 10 U/L (8-55); AST (SGOT) 18 U/L (5-34); Albumin 3.7 g/dL (3.5-5.0); Alkaline Phosphatase 99 U/L (40-110); Anion Gap 15 mmol/L (10-20); BUN (Urea Nitrogen) 11 mg/dL (8.9-20.6); Bilirubin, Total 0.7 mg/dL (0.2-1.2); Calc. Creatinine Clearance 0 mL/min (70-130); Calcium 9.4 mg/dL (7.8-10.44); Carbon Dioxide 22 mmol/L (22-29); Chloride 100 mmol/L (98-107); Estimated GFR-MDRD Greater than 90; Globulin 3.6 g/dL (2.4-3.5); Glucose 100 mg/dL (70-105); Potassium 4.1 mmol/L (3.5-5.1); Protein, Total 7.3 g/dL (6.0-8.3); Sodium 133 mmol/L (136-145)
[2019-10-11] MEDS ORDERED: Cefepime 2 GM VIAL ONE (20:05)
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
[2019-10-11 20:48] LABS: Bicarbonate (HCO3v) 12.3 mmol/L (22.0-28.0); CO2 Tension (PvCO2) 20.7 mmHg (40.0-50.0); Calcium, Ionized 0.72 mmol/L (See Comments:); Chloride 119 mmol/L (98-107); Hemoglobin - Calc 3.6 g/dL (14.0-18.0); Potassium 1.9 mmol/L (3.5-5.1); Sodium 147 mmol/L (138-145); vO2 Saturation-calc 89.5 % (60.0-85.0)
[2019-10-11] MEDS ORDERED: Morphine 4 MG/ML VIAL ONE (20:56)
[2019-10-11 21:18] LABS: Bilirubin Negative (Negative); Blood, Urine Negative (Negative); Clarity Clear (Clear); Glucose, Urine (Dipstick) Normal (Negative); Leukocyte Negative Leu/uL (Negative); Nitrite Negative (Negative); Protein, Urine (Dipstick) Negative (Neg-Trace); Urobilinogen 6 mg/dL (Less than 2)
[2019-10-11] MEDS ORDERED: Triple Antibiotic Oint 1 GM Packet ONE (21:36)
[2019-10-11 21:46] LABS: Amphetamine Not Detected (NotDetected); Barbiturates Screen Not Detected (NotDetected); Benzodiazepine Screen Not Detected (NotDetected); Cocaine Metabolite Screen Not Detected (NotDetected); Medtox Control Line Valid? VALID (VALID); Medtox Reader # READER 4; Methadone Not Detected (NotDetected); Methamphetamine Not Detected (NotDetected); Opiate Screen Detected (NotDetected); Oxycodone Screen Not Detected (NotDetected); Phencyclidine (PCP) Detected (NotDetected); THC/Cannabinoid Screen Detected (NotDetected); Tricyclic Screen Not Detected (NotDetected)
[2019-10-11] MEDS ORDERED: Dextrose 50% Abboject 50 ML SYRINGE SLOW IVP PRN (21:57)
[2019-10-11] MEDS ORDERED: Ondansetron PF 4 MG/2 ML Vial IVP PRN (21:57)
[2019-10-11] MEDS ORDERED: Dextrose 5% in Water 1,000 ML IV PRN (21:57)
[2019-10-11] MEDS ORDERED: hydrALAZINE 20 MG/ML VIAL SLOW IVP PRN (21:57)
[2019-10-11] MEDS ORDERED: traMADol HCl 50 MG TAB PO PRN (22:02)
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
[2019-10-12] MEDS: traMADol HCl 50 MG TAB PO PRN ×2 (00:33→09:44)
[2019-10-12] MEDS: Sodium Chloride 0.9% 1,000 ML IV SCH ×4 (00:34→23:15)
[2019-10-12] MEDS: Acetaminophen 500 MG TAB PO SCH ×5 (00:37→21:44)
[2019-10-12] MEDS: Ibuprofen 800 MG TAB PO SCH ×4 (00:38→21:44)
[2019-10-12 00:41] VITALS: BMI 38.5
[2019-10-12] MEDS ORDERED: Ketorolac Tromethamine 30 MG/ML VIAL IVP SCH (02:45)
[2019-10-12] MEDS ORDERED: Morphine 2 MG/ML SYRINGE SLOW IVP PRN (02:48)
[2019-10-12] MEDS ORDERED: Cyclobenzaprine 10 MG TAB PO PRN (02:50)
[2019-10-12 05:46] LABS: Hemoglobin 9.8 g/dL (14.0-18.0); Mean Corpuscular HGB CONC 32.4 g/dL (32.0-36.0); Mean Corpuscular Hemoglobin 28.1 pg (27.0-31.0); Mean Corpuscular Volume 86.5 fL (78.0-98.0); Mean Platelet Volume 6.3 fL (7.4-10.4); Platelet Count 332 thou/uL (130-400); RBC Distribution Width 13.5 % (11.5-14.5); Red Blood Cell (RBC) Count 3.49 mill/uL (4.70-6.10); White Blood Cell (WBC) Count 7.1 thou/uL (4.8-10.8)
[2019-10-12 05:54] LABS: Eosinophils 2 % (0-10); Lymphocytes 31 % (21-51); MDiff Complete? YES; Monocytes 6 % (0-10); Neutrophil 61 % (42-75)
[2019-10-12 06:00] LABS: Anion Gap 10 mmol/L (10-20); BUN (Urea Nitrogen) 10 mg/dL (8.9-20.6); Calc. Creatinine Clearance 208 mL/min (70-130); Calcium 8.5 mg/dL (7.8-10.44); Carbon Dioxide 24 mmol/L (22-29); Chloride 105 mmol/L (98-107); Estimated GFR-MDRD Greater than 90; Glucose 99 mg/dL (70-105); Magnesium 1.9 mg/dL (1.6-2.6); Phosphorus 3.4 mg/dL (2.3-4.7); Potassium 3.6 mmol/L (3.5-5.1); Sodium 135 mmol/L (136-145)
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
--- NOTE | 2019-10-12 08:41 | RAD ---
RIGHT KNEE 4 VIEWS: Date: 10/12/19 HISTORY: Knee pain, swelling. FINDINGS: Joint spaces are normal. No evidence of fracture. No evidence of joint effusion. IMPRESSION: No acute osseous abnormality. POS: [facility]
[2019-10-12] MEDS ORDERED: FLU VACC QS2019-20(6MOS UP)/PF 60 MCG/0.5 ML SYRINGE IM ONE (09:00)
[2019-10-12] MEDS: Polyethylene Glycol 3350 17 GM Packet PO SCH (09:44)
[2019-10-12] MEDS: Senokot S 8.6-50 MG TAB PO SCH ×2 (09:45→21:44)
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
[2019-10-12] MEDS ORDERED: traMADol HCl 50 MG TAB PO SCH (12:00)
[2019-10-12] MEDS ORDERED: Morphine 4 MG/ML VIAL ONE (13:05)
[2019-10-12] MEDS ORDERED: Morphine 4 MG/ML VIAL SLOW IVP SCH (13:15)
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
[2019-10-12 17:00] LABS: BF Color Colorless; Body Fluid Source Synovial Fluid; Clarity Clear (Clear); Tube # 1
[2019-10-12 17:01] LABS: BF RBC Count - Manual 0 /cumm; BF WBC/Nonhematics Ct. - Manua 1 /cumm
[2019-10-12] MEDS: traMADol HCl 50 MG TAB PO SCH ×2 (17:13→21:45)
[2019-10-12] MEDS: Gabapentin 300 MG CAP PO SCH ×2 (17:13→21:45)
[2019-10-12 17:35] LABS: Synovial Fluid, Glucose Less than 7 mg/dL (Not Available); Synovial Fluid, Protein Less than 1.0 g/dL (Not Available); Synovial Fluid, Uric Acid Less than 2.0 mg/dL (Not Available)
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
[2019-10-12] MEDS: Enoxaparin Sodium 40 MG/0.4 ML SYRINGE SC SCH (21:45)
[2019-10-13] MEDS: Acetaminophen 500 MG TAB PO SCH ×4 (03:58→20:29)
[2019-10-13] MEDS: traMADol HCl 50 MG TAB PO SCH ×2 (03:58→10:08)
[2019-10-13] MEDS: Ibuprofen 800 MG TAB PO SCH ×3 (05:35→20:29)
[2019-10-13] MEDS: Sodium Chloride 0.9% 1,000 ML IV SCH ×4 (05:36→23:29)
[2019-10-13 05:44] LABS: Anion Gap 8 mmol/L (10-20); BUN (Urea Nitrogen) 6 mg/dL (8.9-20.6); Calc. Creatinine Clearance 273 mL/min (70-130); Calcium 8.6 mg/dL (7.8-10.44); Carbon Dioxide 25 mmol/L (22-29); Chloride 109 mmol/L (98-107); Estimated GFR-MDRD Greater than 90; Glucose 81 mg/dL (70-105); Magnesium 1.6 mg/dL (1.6-2.6); Phosphorus 3.2 mg/dL (2.3-4.7); Sodium 138 mmol/L (136-145)
[2019-10-13 06:23] LABS: Band 4 % (5-11); Eosinophils 2 % (0-10); Hemoglobin 9.9 g/dL (14.0-18.0); Lymphocytes 33 % (21-51); MDiff Complete? YES; Mean Corpuscular HGB CONC 31.4 g/dL (32.0-36.0); Mean Corpuscular Hemoglobin 27.5 pg (27.0-31.0); Mean Corpuscular Volume 87.7 fL (78.0-98.0); Mean Platelet Volume 6.9 fL (7.4-10.4); Monocytes 10 % (0-10); Neutrophil 51 % (42-75); Platelet Count 328 thou/uL (130-400); RBC Distribution Width 13.3 % (11.5-14.5); Red Blood Cell (RBC) Count 3.59 mill/uL (4.70-6.10); White Blood Cell (WBC) Count 6.6 thou/uL (4.8-10.8)
[2019-10-13] MEDS ORDERED: Neomycin-Polymyxin 1 ML AMP ONE (07:16)
[2019-10-13] MEDS ORDERED: Fentanyl 250 MCG/5 ML VIAL ONE (07:43)
[2019-10-13] MEDS ORDERED: Midazolam HCl 2 mg/2 ml Vial ONE (07:43)
[2019-10-13] MEDS ORDERED: CEFAZOLIN 2 GM in Premix Bag 1 BAG IVPB SCH ×2 (08:15→14:00)
[2019-10-13] MEDS: Gabapentin 300 MG CAP PO SCH ×3 (10:07→20:28)
[2019-10-13] MEDS: Polyethylene Glycol 3350 17 GM Packet PO SCH (10:08)
[2019-10-13] MEDS: Senokot S 8.6-50 MG TAB PO SCH ×2 (10:08→20:28)
--- NOTE | 2019-10-13 10:20 | RAD ---
Frontal radiograph pelvis: 10/13/2019 COMPARISON: None HISTORY: Arthroplasty right hip FINDINGS: Postoperative hardware overlies the acetabulum on the right. There is a right acetabular co mponent as well as a right proximal femoral component. The femoral head component is not present at this time. No acute fracture noted. IMPRESSION: Frontal radiograph pelvis as detailed above.
[2019-10-13] MEDS ORDERED: Promethazine HCl 25 MG/ML VIAL SLOW IVP PRN (11:00)
[2019-10-13] MEDS ORDERED: Promethazine HCl 25 MG/ML VIAL IM PRN ×2 (11:00→11:04)
[2019-10-13] MEDS ORDERED: Ondansetron HCl/PF 4 MG/2 ML Vial IVP PRN (11:00)
[2019-10-13] MEDS ORDERED: Fentanyl 100 MCG/2 ML VIAL ONE ×3 (11:02→11:43)
[2019-10-13] MEDS ORDERED: diphenhydrAMINE 50 MG/ML VIAL IM/IV PRN (11:04)
[2019-10-13] MEDS ORDERED: fentaNYL Citrate/PF 2,000 MCG in Sodium Chloride 0.9% 60 ML IV PRN (11:04)
[2019-10-13] MEDS ORDERED: diphenhydrAMINE 25 MG CAP PO PRN (11:04)
[2019-10-13] MEDS ORDERED: Ondansetron PF 4 MG/2 ML Vial IVP PRN (11:04)
[2019-10-13] MEDS ORDERED: Naloxone HCl 0.4 mg/ml Vial IV PRN (11:04)
[2019-10-13] MEDS ORDERED: Zolpidem Tartrate 5 MG TAB PO PRN (11:04)
--- NOTE | 2019-10-13 11:21 | RAD ---
Exam: 1 VIEW PELVIS: HISTORY: Status post right hip arthroplasty. COMPARISON: 10/13/2019 at 9:39 AM. FINDINGS: Redemonstration of a right hip arthroplasty. The component of the femoral head now appears to be radiopaque whereas previously it was radiolucent. No other significant change. IMPRESSION: Interval exchange/replacement of a prosthetic component of the right femoral head. Transcribed Date/Time: 10/13/2019 11:28 AM
--- NOTE | 2019-10-13 11:21 | RAD ---
Exam:2 views right hip HISTORY: Status post arthroplasty. COMPARISON: None FINDINGS: Postoperative changes compatible with right hip arthroplasty. Internal fixation hardware al jc the right acetabulum is noted. IMPRESSION: Findings compatible with right hip arthroplasty.
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
[2019-10-13] MEDS: Citalopram 10 MG TAB PO SCH (13:21)
--- NOTE | 2019-10-13 14:25 | EKG ---
Test Reason : SEPSIS Blood Pressure : / mmHG Vent. Rate : 127 BPM Atrial Rate : 127 BPM P-R Int : 130 ms QRS Dur : 096 ms QT Int : 302 ms P-R-T Axes : 048 013 001 degrees QTc Int : 438 ms Sinus tachycardia Possible Left atrial enlargement Borderline ECG Confirmed by GABBY FRAGOSO MD ([id number]), sports editor RONN CROCKETT ([id number]) on 10/13/2019 2:25:05 PM Referred By: Confirmed By:GABBY FRAGOSO MD
[2019-10-13] MEDS ORDERED: Rocuronium Bromide 10 MG/ML (10ML VIAL) ONE (14:59)
[2019-10-13] MEDS ORDERED: Lidocaine 1% PF 5 ML VIAL ONE (14:59)
[2019-10-13] MEDS ORDERED: PROPOFOL 200 MG/20 ML VIAL ONE (14:59)
[2019-10-13] MEDS ORDERED: PHENYLEPHRINE-NS 100 MCG/ML 10 ML SYRINGE ONE (14:59)
[2019-10-13] MEDS ORDERED: Glycopyrrolate 0.2 MG/ML 5 ML SYRINGE ONE (14:59)
[2019-10-13] MEDS ORDERED: ePHEDrine/0.9% NaCl/PF SYRINGE 50 mg/10 ml ONE (14:59)
[2019-10-13] MEDS: CEFAZOLIN 2 GM in Premix Bag 1 BAG IVPB SCH ×2 (16:05→23:28)
[2019-10-13] MEDS: Enoxaparin Sodium 40 MG/0.4 ML SYRINGE SC SCH (20:28)
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
[2019-10-14] MEDS: Acetaminophen 500 MG TAB PO SCH ×4 (04:08→23:36)
[2019-10-14] MEDS: Ibuprofen 800 MG TAB PO SCH ×3 (04:08→23:36)
[2019-10-14 05:27] LABS: #Eosinphils 0.2 thou/uL (0.0-0.7); #Lymphocytes 1.1 thou/uL (1.20-3.40); #Monocytes 0.7 thou/uL (0.11-0.59); #Neutrophils 8.5 thou/uL (1.40-6.50); %Basophils 0.3 % (0.0-1.0); %Eosinophils 1.9 % (0.0-10.0); %Lymphocytes 10.6 % (21.0-51.0); %Monocytes 6.2 % (0.0-10.0); %Neutrophils 80.9 % (42.0-75.0); Hemoglobin 9.6 g/dL (14.0-18.0); Mean Corpuscular HGB CONC 32.1 g/dL (32.0-36.0); Mean Corpuscular Volume 87.4 fL (78.0-98.0); Mean Platelet Volume 6.3 fL (7.4-10.4); Platelet Count 319 thou/uL (130-400); RBC Distribution Width 13.6 % (11.5-14.5); Red Blood Cell (RBC) Count 3.44 mill/uL (4.70-6.10); White Blood Cell (WBC) Count 10.5 thou/uL (4.8-10.8)
[2019-10-14 05:53] LABS: Anion Gap 8 mmol/L (10-20); BUN (Urea Nitrogen) 5 mg/dL (8.9-20.6); Calc. Creatinine Clearance 269 mL/min (70-130); Carbon Dioxide 25 mmol/L (22-29); Chloride 105 mmol/L (98-107); Estimated GFR-MDRD Greater than 90; Glucose 115 mg/dL (70-105); Magnesium 1.5 mg/dL (1.6-2.6); Phosphorus 2.3 mg/dL (2.3-4.7); Potassium 3.9 mmol/L (3.5-5.1); Sodium 134 mmol/L (136-145)
[2019-10-14] MEDS ORDERED: Magnesium Sulfate 3 GM in Sodium Chloride 0.9% 250 ML 250 ML IVPB SCH (08:30)
[2019-10-14] MEDS: Senokot S 8.6-50 MG TAB PO SCH ×2 (08:53→21:28)
[2019-10-14] MEDS: CEFAZOLIN 2 GM in Premix Bag 1 BAG IVPB SCH ×2 (08:53→16:45)
[2019-10-14] MEDS: Polyethylene Glycol 3350 17 GM Packet PO SCH (08:53)
[2019-10-14] MEDS: Citalopram 10 MG TAB PO SCH (08:54)
[2019-10-14] MEDS: Gabapentin 300 MG CAP PO SCH ×3 (08:54→21:28)
[2019-10-14] MEDS: Sodium Chloride 0.9% 1,000 ML IV SCH ×3 (15:44→21:27)
--- NOTE | 2019-10-14 18:39 | PRG ---
DATE OF SERVICE: 10/14/2019 SUBJECTIVE: The patient is currently on the surgical floor. He is hospital day 2, postop day 1, status post recurrent right hip posterior dislocation with femoral head osteolysis and status post right posterior wall acetabular fracture. Yesterday, he underwent right total hip arthroplasty, which he did well with. He has had his pain current being controlled with a CANINE DEPUTY. He is tolerating a diet, though he states that he feels nauseated, related to constipation. He has begun working with Physical Therapy. Primarily today, he was just able to pivot to a chair. OBJECTIVE: VITAL SIGNS: Temperature is 98.2, heart rate 93, blood pressure 104/70, respirations 16, oxygen saturation 98% on room air. GENERAL: The patient is resting comfortably in a chair at bedside. He has just completed eating breakfast. He appears in no distress. He is alert and oriented x3. [place] Coma Scale is 15. HEENT: Unremarkable. LUNGS: Clear to auscultation with good inspiratory and expiratory effort. HEART: Regular rate and rhythm. ABDOMEN: Soft, nontender with active bowel sounds. EXTREMITIES: Neurovascularly intact x4. Postop dressing is clean, dry, and intact. LABORATORY FINDINGS: White blood cell count 10.5, hemoglobin 9.6, hematocrit 30.1, platelets 319. Sodium 134, potassium 3.9, chloride 105, CO2 25, BUN 5, creatinine 0.72, glucose 115, magnesium 1.5, phosphorus 2.3. IMAGING STUDIES: There are no radiographs reviewed this morning. ASSESSMENT AND PLAN: 1. Status post recurrent right hip posterior dislocation with femoral head osteolysis, requiring right hip total arthroplasty. 2. Status post right posterior wall acetabular fracture. PLAN: Plan will be to continue supportive care. Encourage physical and occupational therapy. Wean from CANINE DEPUTY. We will give the patient lactulose stay for his constipation and continue to follow along. Discuss placement at the appropriate time. Job ID: [id number]
[2019-10-14] MEDS: Enoxaparin Sodium 40 MG/0.4 ML SYRINGE SC SCH (21:27)
[2019-10-15] MEDS: Acetaminophen 500 MG TAB PO SCH ×4 (03:51→22:37)
[2019-10-15] MEDS: Sodium Chloride 0.9% 1,000 ML IV SCH (03:52)
[2019-10-15] MEDS: Ibuprofen 800 MG TAB PO SCH ×3 (05:37→22:30)
[2019-10-15 06:48] LABS: #Eosinphils 0.3 thou/uL (0.0-0.7); #Lymphocytes 2.1 thou/uL (1.20-3.40); #Monocytes 0.8 thou/uL (0.11-0.59); %Basophils 0.4 % (0.0-1.0); %Eosinophils 3.1 % (0.0-10.0); %Lymphocytes 20.7 % (21.0-51.0); %Monocytes 7.6 % (0.0-10.0); %Neutrophils 68.2 % (42.0-75.0); Hemoglobin 8.7 g/dL (14.0-18.0); Mean Corpuscular HGB CONC 32.3 g/dL (32.0-36.0); Mean Corpuscular Hemoglobin 27.7 pg (27.0-31.0); Mean Corpuscular Volume 85.6 fL (78.0-98.0); Mean Platelet Volume 6.2 fL (7.4-10.4); Platelet Count 327 thou/uL (130-400); RBC Distribution Width 13.4 % (11.5-14.5); Red Blood Cell (RBC) Count 3.16 mill/uL (4.70-6.10); White Blood Cell (WBC) Count 10.2 thou/uL (4.8-10.8)
[2019-10-15] MEDS: Senokot S 8.6-50 MG TAB PO SCH ×2 (09:16→20:37)
[2019-10-15] MEDS: Gabapentin 300 MG CAP PO SCH ×3 (09:16→20:38)
[2019-10-15] MEDS: Polyethylene Glycol 3350 17 GM Packet PO SCH (09:21)
[2019-10-15] MEDS ORDERED: HYDROcodone/Acetaminophen 10/325 mg Tablet PO PRN (09:31)
[2019-10-15] MEDS ORDERED: traMADol HCl 50 MG TAB PO PRN ×2 (09:32→09:33)
[2019-10-15] MEDS: Citalopram 10 MG TAB PO SCH (10:00)
[2019-10-15] MEDS: HYDROcodone/Acetaminophen 10/325 mg Tablet PO PRN ×4 (10:00→22:29)
--- NOTE | 2019-10-15 13:26 | PRG ---
DATE OF SERVICE: 10/15/2019 SUBJECTIVE: The patient remains on the surgical floor. He is hospital day #3, postop day #2, status post recurrent right hip posterior dislocation with femoral head osteolysis and status post right posterior wall acetabular fracture. He underwent total hip arthroplasty on the right side. He is doing well. He has begun working with Physical and Occupational Therapy. 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 He is tolerating a diet, and his bowel function has returned. Currently, we are awaiting rehab placement. OBJECTIVE: VITAL SIGNS: Temperature is 97.7, heart rate 82, blood pressure 125/77, respirations 20, and oxygen saturation 99% on room air. GENERAL: The patient is resting comfortably, sitting in a chair beside the bed. He is awake, alert, and oriented x3. [place] Coma Scale is 15. HEENT: Unremarkable. LUNGS: Clear to auscultation with good inspiratory and expiratory effort. HEART: Regular rate and rhythm. ABDOMEN: Soft, flat, and nontender with active bowel sounds. EXTREMITIES: Neurovascularly intact x4. LABORATORY FINDINGS: White blood cell count 10.2, hemoglobin 8.7, hematocrit 27.0, and platelets 327 IMAGING STUDIES: There are no radiographs to review this morning. ASSESSMENT: 1. Status post recurrent right hip posterior dislocation with a right femoral head osteolysis, requiring right hip total arthroplasty. 2. Status post right posterior wall acetabular fracture. 3. Acute blood-loss anemia. PLAN: Plan will be to continue supportive care. Encourage physical and occupational therapy. Transition to oral pain medications. Continue to follow his complete blood count and await final placement determination. Job ID: [id number]
[2019-10-15] MEDS: Ferrous Sulfate 325 MG TAB PO SCH (18:35)
[2019-10-15] MEDS: Enoxaparin Sodium 40 MG/0.4 ML SYRINGE SC SCH (20:37)
[2019-10-15] MEDS: Ascorbic Acid 500 mg Chewable Tablet PO SCH (20:38)
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
[2019-10-16] MEDS: Acetaminophen 500 MG TAB PO SCH ×2 (04:44→14:42)
[2019-10-16] MEDS: Ibuprofen 800 MG TAB PO SCH ×2 (05:38→14:31)
[2019-10-16 06:22] LABS: #Eosinphils 0.4 thou/uL (0.0-0.7); #Lymphocytes 2.4 thou/uL (1.20-3.40); #Monocytes 0.6 thou/uL (0.11-0.59); #Neutrophils 5.5 thou/uL (1.40-6.50); %Basophils 0.3 % (0.0-1.0); %Lymphocytes 26.7 % (21.0-51.0); Hemoglobin 8.4 g/dL (14.0-18.0); Mean Corpuscular HGB CONC 32.4 g/dL (32.0-36.0); Mean Corpuscular Hemoglobin 27.8 pg (27.0-31.0); Mean Corpuscular Volume 85.9 fL (78.0-98.0); Mean Platelet Volume 6.2 fL (7.4-10.4); Platelet Count 350 thou/uL (130-400); RBC Distribution Width 13.4 % (11.5-14.5); Red Blood Cell (RBC) Count 3.03 mill/uL (4.70-6.10); White Blood Cell (WBC) Count 8.9 thou/uL (4.8-10.8)
[2019-10-16] MEDS: Senokot S 8.6-50 MG TAB PO SCH (09:35)
[2019-10-16] MEDS: Ascorbic Acid 500 mg Chewable Tablet PO SCH (09:35)
[2019-10-16] MEDS: Polyethylene Glycol 3350 17 GM Packet PO SCH (09:36)
[2019-10-16] MEDS: Ferrous Sulfate 325 MG TAB PO SCH (09:36)
[2019-10-16] MEDS: Citalopram 10 MG TAB PO SCH (09:36)
[2019-10-16] MEDS: Gabapentin 300 MG CAP PO SCH ×2 (09:36→14:30)
[2019-10-16] MEDS: HYDROcodone/Acetaminophen 10/325 mg Tablet PO PRN ×2 (09:37→14:30)
[2019-10-16 15:45] VITALS: BP 122/76; TEMP 98.3
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
--- NOTE | 2019-10-19 01:16 | PQF ---
RORY ALEMAN GARY PA-C [id number] [facility] A [id number] CLINICAL DOCUMENTATION CLARIFICATION FORM: POST DISCHARGE Addendum to original discharge summary date: ____ Late entry note date: __ DATE: 10/19/19 ATTN: Mohan Becerra Please exercise your independent, professional judgment in responding to the clarification form. Clinical indicators are provided on the bottom of this form for your review Can you please further clarify if Sepsis is ruled in or ruled out? Sepsis [ ] Ruled in diagnosis [ ] Continue to treat [ ] Resolved [ X ] Ruled out diagnosis [ ] Cannot rule out diagnosis [ ] Other diagnosis [ ] Unable to determine In addition, please specify: Present on Admission (POA): [ X ] Yes [ ] No [ ] Unable to determine For continuity of documentation, please document condition throughout progress notes and discharge summary. Thank You. CLINICAL INDICATORS - SIGNS / SYMPTOMS / LABS DS pg.1- Concern for sepsis and infectious process, likely upper respiratory infection DS pg.1- The patient had slight fever and tachycardia upon admission H and P pg.1- No sign of infection H and P pg.3- We will closely monitor for him for sign and symptoms of sepsis, although he is not septic at this time RISK FACTORS URI- DS pg.1 Asthma- H and P pg.1 Polysubstance abuse- Ds pg.1 TREATMENTS IV fluids- DEC Blood culture-- Microbiology Cefepime Hcl 2gm- IV- DEC 30 (This form is maintained as a part of the permanent medical record) 2014 [employer]. All Rights Reserved [email or web address] [not provided] MTDD
== END 2019-10-16 18:20 | DRG 470 ==
LOC: ERS 18:12 → SURG A 22:03
PROVIDERS: ADMIT Surgery; ATTEND Surgery
PROC: 0SR90JZ Replacement of Right Hip Joint with Synthetic Substitute, Open Approach (ICD-10-PCS; principal; 2019-10-12)
PROC: 0SJ94ZZ Inspection of Right Hip Joint, Percutaneous Endoscopic Approach (ICD-10-PCS; 2019-10-12)
DX: M24.451 Recurrent dislocation, right hip (principal); D62 Acute posthemorrhagic anemia; M89.551 Osteolysis, right thigh; J45.909 Unspecified asthma, uncomplicated; F32.9 Major depressive disorder, single episode, unspecified; F19.10 Other psychoactive substance abuse, uncomplicated; J06.9 Acute upper respiratory infection, unspecified; Z87.891 Personal history of nicotine dependence; K59.00 Constipation, unspecified
CPT/HCPCS: 20610; 36415; 36430; 71045; 72170; 74177; 77002; 80048; 80053; 80306; 80307; 81003; 82330; 82803; 82945; 83605; 83735; 84100; 84157; 84560; 85007; 85025; 85027; 85652; 86140; 86850; 86900; 86901; 87040; 87070; 87086; 87205; 87804; 88305; 88331; 89051; 89060; 90471; 90686; 93005; 94760; 96361; 96365; 96375; C1776; G0008; J0690; J0692; J1650; J1885; J2001; J2250; J2270; J2704; J3010; J3370; J3475; J3490; J7050; P9016; Q9967

== ENCOUNTER 2019-10-25 19:29 | Inpatient (IN) | payer OTHER, SELFPAY ==
[~2019-10-25 19:29] MED LIST changes: +Heparin 1,000 UNITS/ML VIAL ONE; -Iopamidol-370 76% 500 ML 1 ML ONE
[2019-10-25] MEDS ORDERED: Fentanyl 100 MCG/2 ML VIAL ONE ×2 (20:06→21:56)
[2019-10-25] MEDS ORDERED: Cefepime 2 GM VIAL ONE (20:07)
[2019-10-25] MEDS ORDERED: Ketorolac Tromethamine 30 MG/ML VIAL ONE (20:07)
[2019-10-25] MEDS ORDERED: Ondansetron PF 4 MG/2 ML Vial ONE (20:07)
[2019-10-25 20:16] LABS: #Basophils 0.1 thou/uL (0.0-0.2); #Eosinphils 0.1 thou/uL (0.0-0.7); #Lymphocytes 2.5 thou/uL (1.20-3.40); #Monocytes 1.3 thou/uL (0.11-0.59); #Neutrophils 12.5 thou/uL (1.40-6.50); %Basophils 0.4 % (0.0-1.0); %Eosinophils 0.6 % (0.0-10.0); %Lymphocytes 15.3 % (21.0-51.0); %Monocytes 7.8 % (0.0-10.0); %Neutrophils 75.9 % (42.0-75.0); Hemoglobin 10.3 g/dL (14.0-18.0); Mean Corpuscular HGB CONC 32.9 g/dL (32.0-36.0); Mean Corpuscular Hemoglobin 27.3 pg (27.0-31.0); Mean Platelet Volume 6.1 fL (7.4-10.4); Platelet Count 444 thou/uL (130-400); RBC Distribution Width 14.1 % (11.5-14.5); Red Blood Cell (RBC) Count 3.78 mill/uL (4.70-6.10); White Blood Cell (WBC) Count 16.5 thou/uL (4.8-10.8)
[2019-10-25 20:38] LABS: ALT (SGPT) 13 U/L (8-55); AST (SGOT) 12 U/L (5-34); Albumin 3.5 g/dL (3.5-5.0); Alkaline Phosphatase 83 U/L (40-110); Anion Gap 13 mmol/L (10-20); BUN (Urea Nitrogen) 9 mg/dL (8.9-20.6); Bilirubin, Total 0.7 mg/dL (0.2-1.2); Calc. Creatinine Clearance 0 mL/min (70-130); Calcium 9.2 mg/dL (7.8-10.44); Carbon Dioxide 25 mmol/L (22-29); Chloride 101 mmol/L (98-107); Estimated GFR-MDRD Greater than 90; Globulin 3.4 g/dL (2.4-3.5); Glucose 96 mg/dL (70-105); Potassium 3.6 mmol/L (3.5-5.1); Protein, Total 6.9 g/dL (6.0-8.3); Sodium 135 mmol/L (136-145)
[2019-10-25 20:38] LABS: Bilirubin Negative (Negative); Blood, Urine Negative (Negative); Clarity Clear (Clear); Glucose, Urine (Dipstick) Normal (Negative); Leukocyte Negative Leu/uL (Negative); Nitrite Negative (Negative); Protein, Urine (Dipstick) Negative (Neg-Trace)
[2019-10-25] MEDS ORDERED: HYDROcodone/Acetaminophen 5/325 mg Tablet PO PRN ×2 (23:33)
[2019-10-25] MEDS ORDERED: Acetaminophen 325 MG TAB PO PRN (23:33)
[2019-10-25] MEDS ORDERED: Ondansetron ODT 4 MG TAB SL PRN (23:33)
[2019-10-25] MEDS ORDERED: Ondansetron PF 4 MG/2 ML Vial IVP PRN (23:33)
[2019-10-26] MEDS: Fentanyl 100 MCG/2 ML VIAL SLOW IVP PRN ×3 (00:45→09:24)
[2019-10-26] MEDS: Sodium Chloride 0.9% 1,000 ML IV SCH ×2 (00:46→09:25)
[2019-10-26 01:06] VITALS: BMI 36.9
[2019-10-26] MEDS ORDERED: Cefepime 2 GM in Sodium Chloride 0.9% 100 ML IVPB SCH (04:00)
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
--- NOTE | 2019-10-26 08:53 | RAD ---
2 VIEWS LEFT FOREARM: Date: 10/26/2019 COMPARISON: 08/26/19. HISTORY: Radius and ulnar fractures. Evaluate for fracture healing. FINDINGS: 2 views of the left forearm show plates and screws spanning fractures of the mid portions of the radi us and ulna. Persistent lucency is seen about the fractures, but there may be some bridging callus. IMPRESSION: Status post open reduction and internal fixation of left radius and ulnar fractures. POS: CET
--- NOTE | 2019-10-26 09:06 | RAD ---
TWO VIEWS OF RIGHT HIP: COMPARISON: 10/13/2019. HISTORY: Status post ORIF for posterior acetabular wall fractures. FINDINGS: Two views of the right hip show multiple plate and screws in the pelvis from a pair of the acetabular fractures. The patient has a right hip prosthesis without perihardware lucency or fracture. IMPRESSION: Stable postoperative changes of the right hip. POS: CET
[2019-10-26] MEDS ORDERED: Ondansetron PF 4 MG/2 ML Vial ONE (09:51)
[2019-10-26] MEDS ORDERED: Ketorolac Tromethamine 30 MG/ML VIAL ONE (09:51)
[2019-10-26] MEDS ORDERED: Dexamethasone 20 MG/5 ML VIAL ONE (09:51)
[2019-10-26] MEDS ORDERED: Lidocaine 1% PF 5 ML VIAL ONE (09:51)
[2019-10-26] MEDS ORDERED: Glycopyrrolate 0.2 MG/ML 5 ML SYRINGE ONE (09:51)
[2019-10-26] MEDS ORDERED: PROPOFOL 200 MG/20 ML VIAL ONE (09:51)
[2019-10-26] MEDS ORDERED: Rocuronium Bromide 10 MG/ML (10ML VIAL) ONE (09:51)
[2019-10-26] MEDS ORDERED: PHENYLEPHRINE-NS 100 MCG/ML 10 ML SYRINGE ONE (09:51)
[2019-10-26] MEDS ORDERED: Acetaminophen 1,000 MG in Premix Bag 1 BAG IVPB SCH (13:00)
[2019-10-26] MEDS ORDERED: Acetaminophen 650 MG Suppository PR SCH (14:30)
[2019-10-26] MEDS ORDERED: Neomycin-Polymyxin 1 ML AMP ONE ×3 (15:09→16:55)
[2019-10-26] MEDS ORDERED: Fentanyl 100 MCG/2 ML VIAL ONE ×4 (15:47→18:51)
[2019-10-26] MEDS ORDERED: Lidocaine 2% Jelly 5 ML TUBE ONE (16:03)
[2019-10-26] MEDS ORDERED: Promethazine HCl 25 MG/ML VIAL IM PRN ×2 (18:25→18:31)
[2019-10-26] MEDS ORDERED: HYDROcodone/Acetaminophen 10/325 mg Tablet PO PRN (18:25)
[2019-10-26] MEDS ORDERED: Bisacodyl 10 MG SUPP PR PRN (18:25)
[2019-10-26] MEDS ORDERED: Ondansetron PF 4 MG/2 ML Vial IV PRN (18:25)
[2019-10-26] MEDS ORDERED: traMADol HCl 50 MG TAB PO PRN ×2 (18:25)
[2019-10-26] MEDS ORDERED: Morphine 2 MG/ML SYRINGE SLOW IVP PRN (18:25)
[2019-10-26] MEDS ORDERED: Morphine 4 MG/ML VIAL SLOW IVP PRN (18:25)
[2019-10-26] MEDS ORDERED: Acetaminophen/Codeine 30-300mg Tablet PO PRN ×2 (18:25)
[2019-10-26] MEDS ORDERED: Acetaminophen 325 MG TAB PO PRN (18:25)
[2019-10-26] MEDS ORDERED: Fentanyl 100 MCG/2 ML VIAL SLOW IVP PRN (18:25)
[2019-10-26] MEDS ORDERED: Communication Order-Pharmacy FS SCH (18:30)
[2019-10-26] MEDS ORDERED: Promethazine HCl 25 MG/ML VIAL SLOW IVP PRN (18:31)
[2019-10-26] MEDS ORDERED: Ondansetron HCl/PF 4 MG/2 ML Vial IVP PRN (18:31)
[2019-10-26] MEDS ORDERED: Promethazine HCl 25 MG/ML VIAL ONE (18:50)
[2019-10-26] MEDS ORDERED: HYDROmorphone 0.5 MG/0.5 ML SYRINGE ONE ×2 (19:09→19:27)
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
[2019-10-26] MEDS: Aspirin 81 mg Enteric Coated Tablet PO SCH (20:34)
[2019-10-26] MEDS: Vancomycin HCl 1.75 GM in Sodium Chloride 0.9% 500 ML IVPB SCH (20:34)
[2019-10-26] MEDS: Cefepime 2 GM in Sodium Chloride 0.9% 100 ML IVPB SCH (20:39)
[2019-10-26] MEDS ORDERED: Vancomycin HCl 1 GM in Premix Bag 1 BAG IVPB SCH (21:00)
[2019-10-26] MEDS: HYDROcodone/Acetaminophen 10/325 mg Tablet PO PRN (22:02)
[2019-10-26] MEDS: Sodium Chloride 0.9% 100 ML IV SCH (23:58)
[2019-10-26] MEDS: Ketorolac Tromethamine 30 MG/ML VIAL IVP SCH (23:59)
[2019-10-27] MEDS: Sodium Chloride 0.9% 100 ML IV SCH ×3 (00:05→00:08)
[2019-10-27] MEDS: Vancomycin HCl 1.75 GM in Sodium Chloride 0.9% 500 ML IVPB SCH ×3 (04:58→20:24)
[2019-10-27 05:38] LABS: #Monocytes 0.9 thou/uL (0.11-0.59); #Neutrophils 15.9 thou/uL (1.40-6.50); %Basophils 0.2 % (0.0-1.0); %Eosinophils 0.1 % (0.0-10.0); %Lymphocytes 5.7 % (21.0-51.0); %Monocytes 4.8 % (0.0-10.0); %Neutrophils 89.3 % (42.0-75.0); Hemoglobin 9.2 g/dL (14.0-18.0); Mean Corpuscular HGB CONC 31.8 g/dL (32.0-36.0); Mean Corpuscular Hemoglobin 26.5 pg (27.0-31.0); Mean Corpuscular Volume 83.5 fL (78.0-98.0); Mean Platelet Volume 6.6 fL (7.4-10.4); Platelet Count 422 thou/uL (130-400); RBC Distribution Width 13.8 % (11.5-14.5); Red Blood Cell (RBC) Count 3.47 mill/uL (4.70-6.10); White Blood Cell (WBC) Count 17.8 thou/uL (4.8-10.8)
[2019-10-27] MEDS: Ketorolac Tromethamine 30 MG/ML VIAL IVP SCH ×4 (05:55→23:45)
[2019-10-27 06:04] LABS: ALT (SGPT) 10 U/L (8-55); AST (SGOT) 13 U/L (5-34); Alkaline Phosphatase 81 U/L (40-110); Anion Gap 12 mmol/L (10-20); BUN (Urea Nitrogen) 8 mg/dL (8.9-20.6); Bilirubin, Total 0.4 mg/dL (0.2-1.2); Calc. Creatinine Clearance 261 mL/min (70-130); Calcium 8.8 mg/dL (7.8-10.44); Carbon Dioxide 24 mmol/L (22-29); Chloride 103 mmol/L (98-107); Estimated GFR-MDRD Greater than 90; Globulin 3.4 g/dL (2.4-3.5); Glucose 136 mg/dL (70-105); Potassium 4.7 mmol/L (3.5-5.1); Protein, Total 6.4 g/dL (6.0-8.3); Sodium 134 mmol/L (136-145)
[2019-10-27] MEDS: Aspirin 81 mg Enteric Coated Tablet PO SCH ×2 (08:36→20:24)
[2019-10-27] MEDS: HYDROcodone/Acetaminophen 10/325 mg Tablet PO PRN ×3 (08:36→17:44)
[2019-10-27] MEDS: Cefepime 2 GM in Sodium Chloride 0.9% 100 ML IVPB SCH ×2 (08:36→20:24)
[2019-10-27] MEDS: Citalopram 10 MG TAB PO SCH (11:48)
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
--- NOTE | 2019-10-27 15:05 | SPC ---
Sonographic guided left upper extremity PICC placement HISTORY: Hip infection. FINDINGS: After explaining the procedure and answering all questions, the left upper extremity was pr epped and draped in usual sterile fashion. Sterile technique, buffered local anesthesia, sonographic guidance, and a 22-gauge needle were used to carefully access the left basilic vein. Josh dard technique was used to place the tip of a 5 [place] single lumen PICC so that the tip lies at the level of the right atrium. Catheter was flushed and secured externally. Patient tolerated the pro cedure well and was returned in unchanged condition. Fluoroscopy time 0 seconds. IMPRESSION: Left upper extremity PICC is ready for use.
--- NOTE | 2019-10-27 15:50 | PQF ---
CLINICAL DOCUMENTATION IMPROVEMENT CLARIFICATION FORM: ICD-10 Updated PLEASE DO AN ADDENDUM TO THE PROGRESS NOTE WITH ANY DOCUMENTATION UPDATES OR ADDITIONS AND CARRY THROUGH TO DC SUMMARY. THANK YOU. DATE: 10/27/19 ATTN: DR. ALVARADO Please exercise your independent, professional judgment in responding to the clarification form. Clinical indicators are provided on the bottom of this form for your review Please check appropriate box(es): [ ] Sepsis due to: (Pna, UTI, gangrenous gall bladder, etc.) Due to: [ ] Device (please specify) [ ] Implant [ ] Graft [ ] Infusion [ ] Localized infection without sepsis [ ] Other diagnosis [ ] Unable to determine In addition, please specify: Present on Admission (POA): [ ] Yes [ ] No [ ] Unable to determine For continuity of documentation, please document condition throughout progress notes and discharge summary. Thank You. CLINICAL INDICATORS - SIGNS / SYMPTOMS / LABS / RESULTS AND LOCATION IN MR ER NOTE: PULSE 108 WBC 10/25: 16.5 WBC 10/27: 17.8 CRP 10/25: 13.48 RISKS: INFECTED RIGHT TOTAL HIP ARTHROPLASTY, STATUS POST ORIF RIGHT ACETABULUM TREATMENT: IV VANCOMYCIN (ER) IV CEFEPIME (ER) IV FLUIDS (ER) BLOOD AND WOUND CULTURES (10/25; 10/26) EXCISIONAL DEBRIDEMENT 10/26 ID CONSULT [facility]Y AND LIKELY NEED PICC LINE (CONSULTATION NOTE 10/27) SAP Oceanography Professor Crystal Reports Winform Viewer (This form is maintained as a part of the permanent medical record) 2014 [employer]. All Rights Reserved [email or web address] [email or web address] Office: [phone] [facility]en[facility]
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
[2019-10-27 19:34] LABS: Vancomycin, Trough 20.1 ug/mL
[2019-10-27] MEDS: Cyclobenzaprine 10 MG TAB PO PRN (20:34)
--- NOTE | 2019-10-27 22:48 | PDOC.EVN ---
Addendum - Attending - Attending Attestation Date/Time: 10/27/19 2395 I personally evaluated the patient and discussed the management with Dr. Howe I agree with the History, Examination, Assessment and Plan documented above with any addition or exceptions noted below - 33 yo male with h/o asthma in past ; on no current medications admitted by Orthopedic service due to infection of right hip prosthesis. Family medicine service consulted for medical management. PMH/PSH/Meds/SH reviewed and agree with resident's documentation. Tm 100.7 VSS Exam repeated by me and agree with resident's findings. A/P: 1) Right hip infection- continue antibitoics as recommended by ID. PICC line placed for residential abx. 2) H/o asthma- asymptomatic currently; will continue to monitor. Thank you for the consult.
[2019-10-28] MEDS: HYDROcodone/Acetaminophen 10/325 mg Tablet PO PRN ×4 (02:14→18:56)
[2019-10-28] MEDS: Vancomycin HCl 1.75 GM in Sodium Chloride 0.9% 500 ML IVPB SCH (05:05)
[2019-10-28 05:19] LABS: #Eosinphils 0.2 thou/uL (0.0-0.7); #Lymphocytes 2.3 thou/uL (1.20-3.40); #Monocytes 0.7 thou/uL (0.11-0.59); #Neutrophils 7.3 thou/uL (1.40-6.50); %Basophils 0.3 % (0.0-1.0); %Eosinophils 1.5 % (0.0-10.0); %Lymphocytes 21.7 % (21.0-51.0); %Monocytes 6.3 % (0.0-10.0); %Neutrophils 70.3 % (42.0-75.0); Mean Corpuscular HGB CONC 31.7 g/dL (32.0-36.0); Mean Corpuscular Hemoglobin 26.9 pg (27.0-31.0); Mean Corpuscular Volume 84.6 fL (78.0-98.0); Mean Platelet Volume 6.5 fL (7.4-10.4); Platelet Count 402 thou/uL (130-400); RBC Distribution Width 13.4 % (11.5-14.5); Red Blood Cell (RBC) Count 2.96 mill/uL (4.70-6.10); White Blood Cell (WBC) Count 10.4 thou/uL (4.8-10.8)
[2019-10-28] MEDS: Aspirin 81 mg Enteric Coated Tablet PO SCH ×2 (09:17→21:13)
[2019-10-28] MEDS: Cefepime 2 GM in Sodium Chloride 0.9% 100 ML IVPB SCH (09:17)
--- NOTE | 2019-10-28 09:20 | PDOC.FM ---
- Subjective Subjective: pt resting in bed, tolerating po. denies pain - Objective Vital Signs & Weight: Vital Signs (12 hours) Temp Pulse Resp BP Pulse Ox 10/28/19 07:59 97.7 F 63 20 102/60 97 10/28/19 05:06 97.6 F 68 14 111/70 97 Weight Admit Weight 123.649 kg Weight 123.649 kg I&O: 10/27/19 10/28/19 10/29/19 06:59 06:59 06:59 Intake Total 1000 800 Output Total 1652 710 Balance -652 90 Result Diagrams: 10/28/19 05:01 10/27/19 05:03 Phys Exam - Physical Examination Constitutional: NAD HEENT: moist MMs Neck: supple Respiratory: clear to auscultation bilateral Cardiovascular: RRR, no significant murmur Gastrointestinal: no distention Musculoskeletal: no edema Neurological: moves all 4 limbs Psychiatric: normal affect Skin: no rash Deviation from normal: dressing c/d/i Dx/Plan (1) Prosthetic joint infection Code(s): T84.50XA - INFECT/INFLM REACTION DUE TO UNSP INT JOINT PROSTH, INIT Status: Acute (2) Post-operative pain Code(s): G89.18 - OTHER ACUTE POSTPROCEDURAL PAIN Status: Acute (3) Asthma Code(s): J45.909 - UNSPECIFIED ASTHMA, UNCOMPLICATED Status: Acute - Plan Plan: R hip infection - s/p debridement washout by ortho - vacs in place - IV abx cefepime and vanc, 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 Addendum - Attending - Attending Attestation Date/Time: 10/28/19 9930 I personally evaluated the patient and discussed the management with the team. I agree with the History, Examination, Assessment and Plan documented above with any addition or exceptions noted below.
[2019-10-28] MEDS: Citalopram 10 MG TAB PO SCH (09:58)
[2019-10-28] MEDS ORDERED: Vancomycin 1.5 GRAM/300 ML BAG 1.5 GM in Premix Bag 1 BAG IVPB SCH (12:00)
[2019-10-28] MEDS: Cyclobenzaprine 10 MG TAB PO PRN ×2 (12:30→21:13)
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
[2019-10-28] MEDS: cefTRIAXone\\ROCEPHIN 2 GM in Sodium Chloride 0.9% 100 ML IVPB SCH (18:48)
[2019-10-29] MEDS: HYDROcodone/Acetaminophen 10/325 mg Tablet PO PRN ×3 (02:53→23:26)
[2019-10-29 05:58] LABS: #Eosinphils 0.4 thou/uL (0.0-0.7); #Lymphocytes 2.8 thou/uL (1.20-3.40); #Monocytes 0.5 thou/uL (0.11-0.59); #Neutrophils 4.6 thou/uL (1.40-6.50); %Basophils 0.5 % (0.0-1.0); %Monocytes 5.8 % (0.0-10.0); %Neutrophils 54.8 % (42.0-75.0); Hemoglobin 7.9 g/dL (14.0-18.0); Mean Corpuscular HGB CONC 31.3 g/dL (32.0-36.0); Mean Corpuscular Hemoglobin 26.7 pg (27.0-31.0); Mean Corpuscular Volume 85.5 fL (78.0-98.0); Mean Platelet Volume 6.5 fL (7.4-10.4); Platelet Count 436 thou/uL (130-400); RBC Distribution Width 13.6 % (11.5-14.5); Red Blood Cell (RBC) Count 2.95 mill/uL (4.70-6.10); White Blood Cell (WBC) Count 8.3 thou/uL (4.8-10.8)
--- NOTE | 2019-10-29 08:40 | PDOC.FM ---
- Subjective Subjective: pt resting comfortably in bed, drains removed, pain controlled, denies fever - Objective Vital Signs & Weight: Vital Signs (12 hours) Temp Pulse Resp BP Pulse Ox 10/29/19 08:00 98.1 F 66 16 126/82 99 10/29/19 02:59 97.7 F 71 15 114/74 97 10/28/19 23:54 98.0 F 67 18 103/66 98 10/28/19 20:51 98.0 F 65 18 117/76 99 Weight Admit Weight 123.649 kg Weight 123.649 kg I&O: 10/28/19 10/29/19 10/30/19 06:59 06:59 06:59 Intake Total 800 2350 Output Total 710 2830 Balance 90 -480 Result Diagrams: 10/29/19 05:02 10/27/19 05:03 Phys Exam - Physical Examination Constitutional: NAD HEENT: moist MMs Neck: no JVD Gastrointestinal: no distention Musculoskeletal: no edema Neurological: moves all 4 limbs Psychiatric: normal affect Skin: no rash -: dressing c/d/i Dx/Plan (1) Prosthetic joint infection Code(s): T84.50XA - INFECT/INFLM REACTION DUE TO UNSP INT JOINT PROSTH, INIT Status: Acute (2) Post-operative pain Code(s): G89.18 - OTHER ACUTE POSTPROCEDURAL PAIN Status: Acute (3) Asthma Code(s): J45.909 - UNSPECIFIED ASTHMA, UNCOMPLICATED Status: Acute - Plan Plan: R hip infection - s/p debridement washout by ortho - cultures reveal staph aureus sensitive to rocephin - prolonged abx therapy post-operative pain - mgmt per primary team asthma - remote hx, monitor dispo: dc plan per primary team. Addendum - Attending - Attending Attestation Date/Time: 10/29/19 1208 I personally evaluated the patient and discussed the management with the team. I agree with the History, Examination, Assessment and Plan documented above with any addition or exceptions noted below.
[2019-10-29] MEDS: Aspirin 81 mg Enteric Coated Tablet PO SCH ×2 (09:53→20:06)
--- NOTE | 2019-10-29 10:26 | PQF ---
CLINICAL DOCUMENTATION IMPROVEMENT CLARIFICATION FORM: ICD-10 Updated PLEASE DO AN ADDENDUM TO THE PROGRESS NOTE WITH ANY DOCUMENTATION UPDATES OR ADDITIONS AND CARRY THROUGH TO DC SUMMARY. THANK YOU. DATE: 10/29/19 ATTN: Alexandr ROGEL PA-C Please exercise your independent, professional judgment in responding to the clarification form. Clinical indicators are provided on the bottom of this form for your review Please check appropriate box(es): [ ] Sepsis due to: (Pna, UTI, gangrenous gall bladder, etc.) Due to: [ ] Device (please specify) [ ] Implant [ ] Graft [ ] Infusion [ ] Localized infection without sepsis [ ] Other diagnosis [ x ] Unable to determine In addition, please specify: Present on Admission (POA): [ ] Yes [ ] No [ ] Unable to determine For continuity of documentation, please document condition throughout progress notes and discharge summary. Thank You. CLINICAL INDICATORS - SIGNS / SYMPTOMS / LABS / RESULTS AND LOCATION IN MR ER NOTE: PULSE 108 WBC 10/25: 16.5 WBC 10/27: 17.8 CRP 10/25: 13.48 RISKS: INFECTED RIGHT TOTAL HIP ARTHROPLASTY, STATUS POST ORIF RIGHT ACETABULUM TREATMENT: IV VANCOMYCIN (ER) IV CEFEPIME (ER) IV FLUIDS (ER) BLOOD AND WOUND CULTURES (10/25; 10/26) EXCISIONAL DEBRIDEMENT 10/26 ID CONSULT [facility] AND LIKELY NEED PICC LINE (CONSULTATION NOTE 10/27) SAP Desktop Support Technician Crystal Reports Winform Viewer (This form is maintained as a part of the permanent medical record) 2014 [employer]. All Rights Reserved [email or web address] Office: [phone] [place]
[2019-10-29] MEDS: Citalopram 10 MG TAB PO SCH (10:31)
[2019-10-29] MEDS: cefTRIAXone\\ROCEPHIN 2 GM in Sodium Chloride 0.9% 100 ML IVPB SCH (17:42)
[2019-10-29] MEDS: Docusate 100 MG CAP PO SCH (20:06)
[2019-10-30] MEDS: Cyclobenzaprine 10 MG TAB PO PRN (02:29)
--- NOTE | 2019-10-30 08:21 | PDOC.FM ---
- Subjective Subjective: pt resting comfortably in bed, denies fever, pain well controlled - Objective Vital Signs & Weight: Vital Signs (12 hours) Temp Pulse Resp BP Pulse Ox 10/30/19 07:10 98 F 67 18 125/86 99 10/30/19 04:28 98 F 60 16 119/71 97 10/30/19 00:00 98.2 F 63 14 122/75 96 Weight Admit Weight 123.649 kg Weight 123.649 kg I&O: 10/29/19 10/30/19 10/31/19 06:59 06:59 06:59 Intake Total 2350 2100 Output Total 2830 5545 Balance -480 -175 Result Diagrams: 10/29/19 05:02 10/27/19 05:03 Phys Exam - Physical Examination Constitutional: NAD HEENT: moist MMs Neck: supple Musculoskeletal: no edema, pulses present Neurological: moves all 4 limbs Psychiatric: normal affect Skin: no rash Deviation from normal: dressing c/d/i Dx/Plan (1) Prosthetic joint infection Code(s): T84.50XA - INFECT/INFLM REACTION DUE TO UNSP INT JOINT PROSTH, INIT Status: Acute (2) Post-operative pain Code(s): G89.18 - OTHER ACUTE POSTPROCEDURAL PAIN Status: Acute (3) Asthma Code(s): J45.909 - UNSPECIFIED ASTHMA, UNCOMPLICATED Status: Acute - Plan Plan: R hip infection - s/p debridement washout by ortho - cultures reveal staph aureus sensitive to rocephin - prolonged abx therapy post-operative pain - mgmt per primary team asthma - remote hx, monitor dispo: dc plan per primary team. Addendum - Attending - Attending Attestation Date/Time: 10/30/19 09 I personally evaluated the patient and discussed the management with Dr. Howe. I agree with the History, Examination, Assessment and Plan documented above with any addition or exceptions noted below. No cp/sob/n/v/f/c. Pain well controlled.
[2019-10-30] MEDS: Citalopram 10 MG TAB PO SCH (09:56)
[2019-10-30] MEDS: Aspirin 81 mg Enteric Coated Tablet PO SCH ×2 (09:56→19:59)
[2019-10-30] MEDS: Docusate 100 MG CAP PO SCH ×2 (09:56→19:59)
[2019-10-30] MEDS: HYDROcodone/Acetaminophen 10/325 mg Tablet PO PRN ×2 (15:05→19:59)
[2019-10-30] MEDS: cefTRIAXone\\ROCEPHIN 2 GM in Sodium Chloride 0.9% 100 ML IVPB SCH (18:43)
--- NOTE | 2019-10-31 07:43 | PDOC.FM ---
- Subjective Subjective: Seen at bedside this morning. No new complaints. No acute events over night. - Objective Vital Signs & Weight: Vital Signs (12 hours) Temp Pulse Resp BP Pulse Ox 10/31/19 04:00 98.2 F 66 12 92/54 L 96 10/31/19 00:00 98.1 F 61 14 106/61 96 10/30/19 20:00 98.2 F 69 14 90/57 L 95 Weight Admit Weight 123.649 kg Weight 123.649 kg I&O: 10/30/19 10/31/19 11/01/19 06:59 06:59 06:59 Intake Total 2100 500 Output Total 2275 700 Balance -175 -200 Result Diagrams: 10/29/19 05:02 10/27/19 05:03 Phys Exam - Physical Examination Constitutional: NAD HEENT: moist MMs Neck: full ROM Respiratory: clear to auscultation bilateral Cardiovascular: RRR, no significant murmur Gastrointestinal: positive bowel sounds Musculoskeletal: no edema Neurological: moves all 4 limbs Psychiatric: A&O x 3 Skin: no rash Dx/Plan (1) Asthma Code(s): J45.909 - UNSPECIFIED ASTHMA, UNCOMPLICATED Status: Acute (2) Post-operative pain Code(s): G89.18 - OTHER ACUTE POSTPROCEDURAL PAIN Status: Acute (3) Prosthetic joint infection Code(s): T84.50XA - INFECT/INFLM REACTION DUE TO UNSP INT JOINT PROSTH, INIT Status: Acute - Plan Plan: R hip infection - s/p washout by ortho - cultures reveal staph aureus sensitive to rocephin - prolonged abx therapy, ID has been consulted post-operative pain - mgmt per primary team asthma - controlled dispo: Pt is in good condition. Will continue to follow with primary admitting team. dc plan per primary team. Addendum - Attending - Attending Attestation Date/Time: 10/31/19 1206 I personally evaluated the patient and discussed the management with Dr. Mann I agree with the History, Examination, Assessment and Plan documented above with any addition or exceptions noted below.
[2019-10-31] MEDS: HYDROcodone/Acetaminophen 10/325 mg Tablet PO PRN ×3 (09:55→19:42)
[2019-10-31] MEDS: Aspirin 81 mg Enteric Coated Tablet PO SCH ×2 (09:55→19:42)
[2019-10-31] MEDS: Docusate 100 MG CAP PO SCH ×2 (09:55→19:42)
[2019-10-31] MEDS: Citalopram 10 MG TAB PO SCH (09:55)
[2019-10-31] MEDS: cefTRIAXone\\ROCEPHIN 2 GM in Sodium Chloride 0.9% 100 ML IVPB SCH (18:38)
[2019-11-01] MEDS: Cyclobenzaprine 10 MG TAB PO PRN ×2 (02:52→19:40)
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
[2019-11-01] MEDS: HYDROcodone/Acetaminophen 10/325 mg Tablet PO PRN ×3 (08:27→19:41)
[2019-11-01] MEDS: Aspirin 81 mg Enteric Coated Tablet PO SCH ×2 (08:27→19:40)
[2019-11-01] MEDS: Docusate 100 MG CAP PO SCH ×2 (08:27→19:40)
[2019-11-01] MEDS: Citalopram 10 MG TAB PO SCH (08:42)
[2019-11-01] MEDS: Polyethylene Glycol 3350 17 GM Packet PO SCH (11:14)
[2019-11-01] MEDS: cefTRIAXone\\ROCEPHIN 2 GM in Sodium Chloride 0.9% 100 ML IVPB SCH (17:40)
[2019-11-02] MEDS: HYDROcodone/Acetaminophen 10/325 mg Tablet PO PRN ×4 (03:44→20:19)
--- NOTE | 2019-11-02 05:59 | PDOC.FM ---
- Subjective Subjective: NAEO. Patient reports he feels well this AM. States his hip pain comes and goes. Denies any fever/chills, chest pain, constipation or SOB. - Objective MAR Reviewed: Yes Vital Signs & Weight: Vital Signs (12 hours) Temp Pulse Resp BP Pulse Ox 11/02/19 03:40 98 F 66 14 106/72 96 11/01/19 23:35 98.3 F 68 14 114/72 98 11/01/19 19:39 98 11/01/19 19:35 98.2 F 74 16 111/71 98 Weight Admit Weight 123.649 kg Weight 123.649 kg I&O: 10/31/19 11/01/19 11/02/19 06:59 06:59 06:59 Intake Total 500 1000 1200 Output Total 700 2075 450 Balance -200 -1075 750 Result Diagrams: 10/29/19 05:02 10/27/19 05:03 Phys Exam - Physical Examination Constitutional: NAD HEENT: moist MMs Neck: supple, full ROM Respiratory: no wheezing, no rales, no rhonchi, clear to auscultation bilateral Cardiovascular: RRR, no significant murmur Musculoskeletal: no edema Neurological: non-focal, moves all 4 limbs Psychiatric: normal affect, A&O x 3 Skin: no rash, normal turgor, cap refill <2 seconds Dx/Plan (1) Asthma Code(s): J45.909 - UNSPECIFIED ASTHMA, UNCOMPLICATED Status: Acute (2) Post-operative pain Code(s): G89.18 - OTHER ACUTE POSTPROCEDURAL PAIN Status: Acute (3) Prosthetic joint infection Code(s): T84.50XA - INFECT/INFLM REACTION DUE TO UNSP INT JOINT PROSTH, INIT Status: Acute - Plan Plan: 33 YOM who is post-op day #7 s/p R hip washout secondary to staph aureus infection. 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 Will continue to follow with primary admitting team. D/c plan per primary team. Addendum - Attending - Attending Attestation Date/Time: 11/02/19 8645 I personally evaluated the patient and discussed the management with Dr. Campos. I agree with the History, Examination, Assessment and Plan documented above with any addition or exceptions noted below.
[2019-11-02] MEDS: Aspirin 81 mg Enteric Coated Tablet PO SCH ×2 (09:16→20:19)
[2019-11-02] MEDS: Citalopram 10 MG TAB PO SCH (09:16)
[2019-11-02] MEDS: Polyethylene Glycol 3350 17 GM Packet PO SCH (09:16)
[2019-11-02] MEDS: Docusate 100 MG CAP PO SCH ×2 (09:16→20:19)
[2019-11-02] MEDS: cefTRIAXone\\ROCEPHIN 2 GM in Sodium Chloride 0.9% 100 ML IVPB SCH (15:16)
[2019-11-02] MEDS: Cyclobenzaprine 10 MG TAB PO PRN (20:19)
--- NOTE | 2019-11-03 06:30 | PDOC.FM ---
- Subjective Subjective: NAEO. Patient has no complaints this AM. Ready for discharge. Denies SOB, chest pain or constipation. Says hip pain is well-controlled. - Objective MAR Reviewed: Yes Vital Signs & Weight: Vital Signs (12 hours) Temp Pulse Resp BP Pulse Ox 11/03/19 03:40 97.9 F 60 12 114/74 99 11/02/19 23:10 98 F 62 14 107/67 95 11/02/19 20:15 98 F 84 18 105/67 98 Weight Admit Weight 123.649 kg Weight 123.649 kg I&O: 11/01/19 11/02/19 11/03/19 06:59 06:59 06:59 Intake Total 1000 1785 2080 Output Total 2075 1100 1500 Balance -1075 685 580 Result Diagrams: 10/29/19 05:02 10/27/19 05:03 Phys Exam - Physical Examination Constitutional: NAD HEENT: moist MMs Neck: supple, full ROM Respiratory: no wheezing, no rales, no rhonchi, clear to auscultation bilateral Cardiovascular: RRR, no significant murmur Gastrointestinal: positive bowel sounds Musculoskeletal: no edema, pulses present Neurological: non-focal, moves all 4 limbs Psychiatric: normal affect, A&O x 3 Skin: normal turgor Dx/Plan (1) Asthma Code(s): J45.909 - UNSPECIFIED ASTHMA, UNCOMPLICATED Status: Acute (2) Post-operative pain Code(s): G89.18 - OTHER ACUTE POSTPROCEDURAL PAIN Status: Acute (3) Prosthetic joint infection Code(s): T84.50XA - INFECT/INFLM REACTION DUE TO UNSP INT JOINT PROSTH, INIT Status: Acute - Plan Plan: 33 YOM who is post-op day #8 s/p R hip washout secondary to staph aureus infection. R hip infection, s/p washout - ID has been consulted, they will set up usp abx Post-operative pain - mgmt per primary team asthma - controlled, continue PRN albuterol dispo: Pt is in good condition. Will continue to follow with primary admitting team. Likely d/c today by primary team per CM following infusion teaching.
[2019-11-03] MEDS ORDERED: Citalopram 10 MG TAB PO SCH (09:00)
[2019-11-03] MEDS: Aspirin 81 mg Enteric Coated Tablet PO SCH (09:22)
[2019-11-03] MEDS: Polyethylene Glycol 3350 17 GM Packet PO SCH (09:23)
[2019-11-03] MEDS: Docusate 100 MG CAP PO SCH (09:23)
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
[2019-11-03] MEDS: HYDROcodone/Acetaminophen 10/325 mg Tablet PO PRN (10:55)
[2019-11-03 12:07] VITALS: BP 114/74; TEMP 98.1
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
== END 2019-11-03 12:35 | disposition home or self-care (01) | DRG 468 ==
LOC: ERS 19:29 → SURG A 21:31
PROVIDERS: ADMIT Orthopaedic Surgery; ATTEND Orthopaedic Surgery
PROC: 0SRR01Z Replacement of Right Hip Joint, Femoral Surface with Metal Synthetic Substitute, Open Approach (ICD-10-PCS; principal; 2019-10-26)
PROC: 0SPR0JZ Removal of Synthetic Substitute from Right Hip Joint, Femoral Surface, Open Approach (ICD-10-PCS; 2019-10-26)
PROC: 0SP909Z Removal of Liner from Right Hip Joint, Open Approach (ICD-10-PCS; 2019-10-26)
PROC: 0SUA09Z Supplement Right Hip Joint, Acetabular Surface with Liner, Open Approach (ICD-10-PCS; 2019-10-26)
PROC: 02HV33Z Insertion of Infusion Device into Superior Vena Cava, Percutaneous Approach (ICD-10-PCS; 2019-10-27)
PROC: B548ZZA Ultrasonography of Superior Vena Cava, Guidance (ICD-10-PCS; 2019-10-27)
DX: T84.51XA Infection and inflammatory reaction due to internal right hip prosthesis, initial encounter (principal); Y83.8 Other surgical procedures as the cause of abnormal reaction of the patient, or of later complication, without mention of misadventure at the time of the procedure; J45.909 Unspecified asthma, uncomplicated; B95.61 Methicillin susceptible Staphylococcus aureus infection as the cause of diseases classified elsewhere; Z87.891 Personal history of nicotine dependence; G89.18 Other acute postprocedural pain
CPT/HCPCS: 36415; 36569; 80053; 80202; 81003; 83605; 85025; 85652; 86140; 87040; 87070; 87077; 87186; 87205; 96361; 96365; 96367; 96375; 96376; C1751; J0690; J0692; J0696; J1100; J1170; J1644; J1885; J2001; J2405; J2550; J2704; J3010; J3370; J3490; J7050

== ENCOUNTER 2020-01-19 11:20 | Outpatient (CLI) | payer OTHER ==
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
== END 2020-01-19 11:21 | disposition home or self-care (01) ==
LOC: BICRAD 11:20
PROVIDERS: ATTEND Internal Medicine
DX: Z02.71 Encounter for disability determination (principal); Z96.641 Presence of right artificial hip joint

== ENCOUNTER 2020-03-22 07:56 | Outpatient (CLI) | payer OTHER ==
[2020-03-23 16:18] LABS: SARS-CoV-2 MS2 Positive; SARS-CoV-2 N Gene Negative; SARS-CoV-2 S Gene Negative; SARS-CoV-2 orf1ab Negative
== END 2020-03-22 07:57 | disposition home or self-care (01) ==
LOC: LABBT 07:56
PROVIDERS: ATTEND Orthopaedic Surgery
DX: Z01.812 Encounter for preprocedural laboratory examination (principal); Z11.59 Encounter for screening for other viral diseases; S83.281A Other tear of lateral meniscus, current injury, right knee, initial encounter
CPT/HCPCS: 87635; U0003

== ENCOUNTER 2020-03-30 10:56 | Emergency (ER) | payer OTHER, SELFPAY ==
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
[2020-03-30] MEDS ORDERED: Ibuprofen 800 MG TAB ONE (12:37)
== END 2020-03-30 12:45 | disposition home or self-care (01) ==
LOC: ERS 10:56
DX: S76.011A Strain of muscle, fascia and tendon of right hip, initial encounter (principal); J45.909 Unspecified asthma, uncomplicated; F31.9 Bipolar disorder, unspecified; Z87.891 Personal history of nicotine dependence; Z79.899 Other long term (current) drug therapy; W10.9XXA Fall (on) (from) unspecified stairs and steps, initial encounter

== ENCOUNTER 2020-07-26 12:44 | Observation (INO) | payer OTHER ==
[2020-07-26 14:28] VITALS: BMI 36.2
[2020-07-26] MEDS ORDERED: Ondansetron ODT 4 MG TAB PO PRN (14:45)
[2020-07-26] MEDS ORDERED: traMADol HCl 50 MG TAB PO PRN (14:45)
[2020-07-26 14:55] LABS: #Basophils 0.1 thou/uL (0.0-0.2); #Lymphocytes 1.4 thou/uL (1.20-3.40); #Monocytes 0.6 thou/uL (0.11-0.59); #Neutrophils 6.6 thou/uL (1.40-6.50); %Basophils 0.8 % (0.0-1.0); %Eosinophils 0.4 % (0.0-10.0); %Lymphocytes 15.8 % (21.0-51.0); %Monocytes 6.8 % (0.0-10.0); %Neutrophils 76.2 % (42.0-75.0); Hemoglobin 12.8 g/dL (14.0-18.0); Mean Corpuscular HGB CONC 32.3 g/dL (32.0-36.0); Mean Corpuscular Hemoglobin 25.3 pg (27.0-31.0); Mean Corpuscular Volume 78.2 fL (78.0-98.0); Mean Platelet Volume 7.9 fL (7.4-10.4); Platelet Count 272 thou/uL (130-400); RBC Distribution Width 15.9 % (11.5-14.5); Red Blood Cell (RBC) Count 5.07 mill/uL (4.70-6.10); White Blood Cell (WBC) Count 8.6 thou/uL (4.8-10.8)
[2020-07-26 15:21] LABS: ALT (SGPT) 10 U/L (8-55); AST (SGOT) 20 U/L (5-34); Alkaline Phosphatase 86 U/L (40-110); Anion Gap 12 mmol/L (10-20); BUN (Urea Nitrogen) 11 mg/dL (8.9-20.6); Bilirubin, Total 0.6 mg/dL (0.2-1.2); CRP (Inflammatory) Less than 0.50 mg/dL (= or < 0.5); Calc. Creatinine Clearance 161 mL/min (70-130); Carbon Dioxide 24 mmol/L (22-29); Chloride 104 mmol/L (98-107); Estimated GFR-MDRD Greater than 90; Globulin 3.3 g/dL (2.4-3.5); Glucose 111 mg/dL (70-105); Protein, Total 7.3 g/dL (6.0-8.3); Sodium 136 mmol/L (136-145)
[2020-07-27] MEDS ORDERED: Rocuronium Bromide 10 MG/ML (10ML VIAL) ONE (09:11)
[2020-07-27] MEDS ORDERED: Ondansetron PF 4 MG/2 ML Vial ONE (09:11)
[2020-07-27] MEDS ORDERED: Dexamethasone 20 MG/5 ML VIAL ONE (09:11)
[2020-07-27] MEDS ORDERED: Glycopyrrolate 0.2 MG/ML 5 ML SYRINGE ONE (09:11)
[2020-07-27] MEDS ORDERED: Ketorolac Tromethamine 30 MG/ML VIAL ONE (09:11)
[2020-07-27] MEDS ORDERED: PROPOFOL 200 MG/20 ML VIAL ONE (09:11)
[2020-07-27 11:56] LABS: SARS-CoV-2 MS2 Positive; SARS-CoV-2 N Gene Negative; SARS-CoV-2 S Gene Negative; SARS-CoV-2 by NAA Not Detected (NotDetected); SARS-CoV-2 orf1ab Negative
[2020-07-27] MEDS ORDERED: Neomycin-Polymyxin 1 ML AMP ONE (15:52)
[2020-07-27] MEDS ORDERED: Midazolam HCl 2 mg/2 ml Vial ONE (16:05)
[2020-07-27] MEDS ORDERED: Fentanyl 100 MCG/2 ML VIAL ONE (16:05)
[2020-07-27] MEDS ORDERED: Promethazine HCl 25 MG/ML VIAL IM PRN (16:37)
[2020-07-27] MEDS ORDERED: Ondansetron HCl/PF 4 MG/2 ML Vial IVP PRN (16:37)
[2020-07-27] MEDS ORDERED: Promethazine HCl 25 MG/ML VIAL SLOW IVP PRN (16:37)
[2020-07-27] MEDS ORDERED: Communication Order-Pharmacy FS SCH (17:20)
[2020-07-27] MEDS: HYDROcodone/Acetaminophen 10/325 mg Tablet PO PRN (20:29)
[2020-07-28] MEDS: CEFAZOLIN 2 GM in Premix Bag 1 BAG IVPB SCH ×2 (00:04→08:28)
[2020-07-28] MEDS: HYDROcodone/Acetaminophen 10/325 mg Tablet PO PRN ×2 (03:40→09:47)
[2020-07-28 08:14] VITALS: TEMP 98.3
[2020-07-28 11:19] VITALS: BP 147/73
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
== END 2020-07-28 14:38 | disposition home or self-care (01) ==
LOC: SURG B 13:29 → INTOOBSV 13:29
PROVIDERS: ADMIT Orthopaedic Surgery; ATTEND Orthopaedic Surgery
PROC: 0H9HXZZ Drainage of Right Upper Leg Skin, External Approach (ICD-10-PCS; principal; 2020-07-27)
DX: T81.41XA Infection following a procedure, superficial incisional surgical site, initial encounter (principal); J45.909 Unspecified asthma, uncomplicated; F17.200 Nicotine dependence, unspecified, uncomplicated; Z96.641 Presence of right artificial hip joint; Z20.828 Contact with and (suspected) exposure to other viral communicable diseases
CPT/HCPCS: 36415; 80053; 85025; 85652; 86140; 87635; 96374; 96376; G0378; J0690; J1100; J1885; J2250; J2405; J2704; J3010; U0003

== ENCOUNTER 2020-08-19 12:51 | Outpatient (CLI) | payer OTHER ==
--- NOTE | 2020-08-19 14:18 | MRI ---
MRI Lower Ext Jt Rt WO Con History: Internal derangement of right knee Comparison: Right femur radiograph March 2020 Findings: Medial meniscus: Intact Lateral meniscus: Bucket-handle tear throughout the posterior horn, body and anterior horn with flipp ed displaced tissue within the intercondylar notch. The PCL and ACL as well as MCL and LCL are all intact. Extensor mechanism: Mild proximal patellar tendinosis. Patella is intact. No significant trochlea dys plasia. Mild superolateral Hoffa's fat pad edema. Cartilage: Patellofemoral compartment: Multifocal 75% chondral fissures with adjacent fraying delamination throu ghout the medial and lateral patellar facets. Medial compartment: High grade chondral fissure near complete thickness of the central weightbearing surface medial tibial plateau with adjacent delamination having a transverse dimension of 6 mm at the cortical bone with an AP dimension of 11 millimeter. This area of delamination is at risk for dis placement. Lateral compartment: Intact Muscles: Muscle signal and bulk is normal. Soft tissues: Small volume joint fluid. No large free body. Impression: 1. Bucket-handle lateral meniscal tear throughout the posterior horn, body and anterior horn with dis placed tissue within the intercondylar notch. 2. Multifocal high-grade chondral fissures of the medial and lateral patellar facets with adjacent ch ondral delamination and fraying. 3. High-grade chondral defect central weightbearing surface medial tibial plateau with adjacent delam ination measuring 6 x 11 mm at high risk for displacement.
== END 2020-08-19 12:52 | disposition home or self-care (01) ==
LOC: TBSIIMAG 12:51
PROVIDERS: ATTEND Orthopaedic Surgery
DX: M23.91 Unspecified internal derangement of right knee (principal); S83.251A Bucket-handle tear of lateral meniscus, current injury, right knee, initial encounter; M94.8X6 Other specified disorders of cartilage, lower leg

== ENCOUNTER 2020-08-25 12:03 | Outpatient (CLI) | payer OTHER ==
[2020-08-26 15:23] LABS: SARS-CoV-2 MS2 Positive; SARS-CoV-2 N Gene Negative; SARS-CoV-2 S Gene Negative; SARS-CoV-2 by NAA Not Detected (NotDetected); SARS-CoV-2 orf1ab Negative
== END 2020-08-25 12:04 | disposition home or self-care (01) ==
LOC: LABBT 12:03
PROVIDERS: ATTEND Orthopaedic Surgery
DX: Z20.828 Contact with and (suspected) exposure to other viral communicable diseases (principal)
CPT/HCPCS: 87635; U0003

== ENCOUNTER 2020-08-30 12:30 | Day surgery (SDC) | payer OTHER ==
[2020-08-29 10:26] VITALS: BMI 37.3
[~2020-08-30 12:30] MED LIST changes: +Dexamethasone 20 MG/5 ML VIAL ONE; -Heparin 1,000 UNITS/ML VIAL ONE; +Ketorolac Tromethamine 30 MG/ML VIAL ONE; +Lidocaine 1% PF 5 ML VIAL ONE; +Ondansetron PF 4 MG/2 ML Vial ONE; +PROPOFOL 200 MG/20 ML VIAL ONE
[2020-08-30] MEDS ORDERED: Midazolam HCl 2 mg/2 ml Vial ONE (14:16)
[2020-08-30] MEDS ORDERED: Bupivacaine PF 0.5% 30 ML VIAL ONE (14:22)
[2020-08-30] MEDS ORDERED: HYDROmorphone 0.5 MG/0.5 ML SYRINGE ONE (14:27)
[2020-08-30] MEDS ORDERED: Fentanyl 100 MCG/2 ML VIAL ONE (16:05)
[2020-08-30] MEDS ORDERED: HYDROcodone/Acetaminophen 5/325 mg Tablet ONE (16:58)
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
== END 2020-08-30 17:30 | disposition home or self-care (01) ==
LOC: SDC 12:30
PROVIDERS: ATTEND Orthopaedic Surgery
PROC: 0SBC4ZZ Excision of Right Knee Joint, Percutaneous Endoscopic Approach (ICD-10-PCS; principal; 2020-08-30)
DX: S83.251A Bucket-handle tear of lateral meniscus, current injury, right knee, initial encounter (principal); J45.909 Unspecified asthma, uncomplicated; F17.200 Nicotine dependence, unspecified, uncomplicated; Z96.641 Presence of right artificial hip joint
CPT/HCPCS: J0690; J1100; J1170; J1885; J2250; J2405; J2704; J3010; S0020

== ENCOUNTER 2021-08-27 00:20 | Emergency (ER) | payer OTHER | END 2021-08-27 01:46 | LOC: ERS 00:20 | DX: R06.02 Shortness of breath (principal); Z79.899 Other long term (current) drug therapy | CPT/HCPCS: 99283 ==